=== PATIENT | female | born 1965 | race Caucasian/White ===

== ENCOUNTER → 2016-06-28 12:27 | Outpatient (CLI) | payer OTHER ==
[2016-01-07 12:00] VITALS: BMI 17.4
[~2016-06-28 12:27] MED LIST: ACETAMINOPHEN325 MG PO; AMITRIPTYLINE H50 MG PO; ANUSOL-HC25 MG RC; BAYER CHEWABLE81 MG PO; BUTALB-APAP-CA1 EACH PO; CARAFATE1 G PO; CORDARONE200 MG PO; HYDROCODONE-APA1 TAB PO; K-DUR20 MEQ PO; LANOXIN250 MCG PO; MIRALAX17 GM PO; NORCO 7.5/325 T1 TA1 PO; NYSTATIN15 GM TP; OMEPRAZOLE40 MG PO; PERCOCET 2.5/321 TAB; PHENERGAN25 M1 PO; ROBAXIN500 MG PO; ZANTAC150 MG PO
--- NOTE | 2016-06-29 13:59 | EC ---
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 Ao 141 RVOT 70.0 RA PA 89.0 AV Gradient Peak 8.0 AV Mean 4.3 AV Area 2.8 MV Gradient Peak 3.7 MV Mean 1.1 MV Area COMMENTS: Agent Based Modeler: Kingsley LINDA Account Support Rep:1 Dr. Weeks TAPE# PACS DATE OF SERVICE: 06/28/2016 Echocardiogram FINDINGS: 1. Left ventricular chamber size is within normal limits. Left ventricular systolic function is normal. Overall ejection fraction estimated at 60%. 2. Left atrium, right atrium, and right ventricular chamber sizes are within normal limits. ECHOCARDIOGRAM REPORT [id number] HEBERT GUAMAN 3. Valvular structures: The mitral valve demonstrates leaflet calcification, but no significant mitral stenosis is present, only mild mitral regurgitation is present. Mild tricuspid regurgitation is present. No other valvular insufficiency or stenosis. Pulmonary systolic pressure is normal estimated 30 mmHg. 4. No evidence of pericardial effusion or left ventricular thrombus. TRANSINT:[id number] Voice Confirmation ID: [id number] DOCUMENT ID: [id number] BRAD WEEKS MD at 1359 CC: [id number] DICTATION DATE: 06/28/16 1602 CONCIERGE: 06/29/16 0036 DEP CLI 06/28/16 [place] [id number] [place] [address]
== END | disposition home or self-care (01) ==
LOC: D.ECHO 09:00
DX: G43.009 Migraine without aura, not intractable, without status migrainosus (principal); I63.139 Cerebral infarction due to embolism of unspecified carotid artery

== ENCOUNTER → 2016-06-30 09:16 | Outpatient (CLI) | payer OTHER ==
[2016-01-07 12:00] VITALS: BMI 17.4
[2016-07-01 11:11] LABS: IMMUNOGLOBULIN E 6 IU/mL (0-100)
== END | disposition home or self-care (01) ==
LOC: D.RT 09:16
PROVIDERS: Internal Medicine Pulmonary Disease
DX: J45.909 Unspecified asthma, uncomplicated (principal)

== ENCOUNTER → 2016-07-12 09:53 | Outpatient (CLI) | payer OTHER ==
[2016-01-07 12:00] VITALS: BMI 17.4
== END | disposition home or self-care (01) ==
LOC: D.CT 09:53
DX: I63.139 Cerebral infarction due to embolism of unspecified carotid artery (principal); G43.009 Migraine without aura, not intractable, without status migrainosus

== ENCOUNTER 2016-08-05 16:24 | Emergency (ER) | payer OTHER ==
[2016-01-07 12:00] VITALS: BMI 17.4
[2016-08-05 17:28] LABS: BASOPHILS 0.2 % (0.0-2.0); EOSINOPHILS 0.7 % (0-7); HEMATOCRIT 46.8 % (36.0-48.0); HEMOGLOBIN 15.7 g/dL (12-16); IMMATURE GRANULOCYTES 0.1 % (0-5); LYMPHOCYTES 19.2 % (15-50); MCH 29.3 pg (26.0-34.0); MCHC 33.5 g/dL (31.0-37.0); MCV 87.5 fL (80.0-100.0); MONOCYTES 8.7 % (2-11); NEUTROPHILS 71.1 % (40-80); PLATELET COUNT 216 10x3/uL (130-400); RBC 5.35 10x6/uL (4.00-5.40); RDW 12.7 % (11.5-14.5)
[2016-08-05 19:55] LABS: ALBUMIN 4.3 g/dL (3.4-5.0); ALKALINE PHOSPHATASE 123 U/L (46-116); ALT (SGPT) 26 U/L (10-68); BILIRUBIN - TOTAL 0.62 mg/dL (0.2-1.3); CALC OSMOLALITY 280 mosm/kg (275-300); CALCIUM 9.5 mg/dL (8.5-10.1); CARBON DIOXIDE 26.4 mmol/L (21.0-32.0); CHLORIDE - SERUM 106 mmol/L (98-107); CREATININE - SERUM 0.7 mg/dL (0.6-1.3); GLUCOSE 112 mg/dL (74-106); POTASSIUM - SERUM 4.2 mmol/L (3.5-5.1); PROTEIN - SERUM 8.2 g/dL (6.4-8.2); SODIUM 141 mmol/L (136-145); UREA NITROGEN 9 mg/dL (7-18); eGFR NON AFRICAN AMERICAN > 90 mL/min (90-120)
[2016-08-05 19:58] LABS: AMYLASE - SERUM 37 U/L (25-115); DIGOXIN 1.34 ng/mL (0.90-2.00); LIPASE 118 U/L (73-393); PHOSPHOROUS 3.6 mg/dL (2.5-4.9); TROPONIN-I < 0.017 ng/mL (0.000-0.060)
== END 2016-08-06 00:15 | disposition home or self-care (01) ==
LOC: D.ER 16:24
PROVIDERS: Emergency Medicine; Surgery
DX: R10.9 Unspecified abdominal pain (principal); K59.00 Constipation, unspecified; Z95.1 Presence of aortocoronary bypass graft

== ENCOUNTER 2016-08-17 21:04 | Emergency (ER) | payer OTHER ==
[2016-01-07 12:00] VITALS: BMI 17.4
[2016-08-17 22:14] LABS: BASOPHILS 0.2 % (0.0-2.0); EOSINOPHILS 0.8 % (0-7); HEMATOCRIT 43.2 % (36.0-48.0); IMMATURE GRANULOCYTES 0.7 % (0-5); LYMPHOCYTES 18.5 % (15-50); MCH 29.2 pg (26.0-34.0); MCHC 34.7 g/dL (31.0-37.0); MEAN PLATELET VOLUME 10.1 fL (7.4-10.4); MONOCYTES 9.3 % (2-11); NEUTROPHILS 70.5 % (40-80); RBC 5.14 10x6/uL (4.00-5.40); RDW 12.3 % (11.5-14.5); WBC 10.5 10x3/uL (4.8-10.8)
[2016-08-17 22:19] LABS: PLATELET COUNT 279 10x3/uL (130-400)
[2016-08-17 22:30] LABS: ALBUMIN 3.6 g/dL (3.4-5.0); ALKALINE PHOSPHATASE 116 U/L (46-116); ALT (SGPT) 14 U/L (10-68); BILIRUBIN - TOTAL 0.56 mg/dL (0.2-1.3); CALC OSMOLALITY 266 mosm/kg (275-300); CALCIUM 9.7 mg/dL (8.5-10.1); CARBON DIOXIDE 22.7 mmol/L (21.0-32.0); CHLORIDE - SERUM 101 mmol/L (98-107); CREATININE - SERUM 0.7 mg/dL (0.6-1.3); GLUCOSE 117 mg/dL (74-106); POTASSIUM - SERUM 3.3 mmol/L (3.5-5.1); PROTEIN - SERUM 8.6 g/dL (6.4-8.2); SODIUM 134 mmol/L (136-145); UREA NITROGEN 6 mg/dL (7-18); eGFR NON AFRICAN AMERICAN > 90 mL/min (90-120)
[2016-08-17 22:35] LABS: DIGOXIN 1.95 ng/mL (0.90-2.00)
== END 2016-08-18 02:12 | disposition home or self-care (01) ==
LOC: D.ER 21:04
PROVIDERS: Emergency Medicine
DX: J20.9 Acute bronchitis, unspecified (principal); Z95.1 Presence of aortocoronary bypass graft; G51.0 Bell's palsy

== ENCOUNTER 2016-09-08 15:04 | Emergency (ER) | payer MEDICAID ==
[2016-01-07 12:00] VITALS: BMI 17.4
[2016-09-08 16:14] LABS: BASOPHILS 0.1 % (0-2); EOSINOPHILS 1.3 % (0-7); HEMATOCRIT 46.3 % (36.0-48.0); HEMOGLOBIN 15.3 g/dL (12-16); IMMATURE GRANULOCYTES 0.2 % (0-5); MCH 28.7 pg (26.0-34.0); MCV 86.9 fL (80.0-100.0); MONOCYTES 7.5 % (2-11); NEUTROPHILS 68.9 % (40-80); PLATELET COUNT 254 10x3/uL (130-400); RBC 5.33 10x6/uL (4.00-5.40); RDW 13.6 % (11.5-14.5); WBC 8.7 10x3/uL (4.8-10.8)
[2016-09-08 16:49] LABS: ALBUMIN 3.9 g/dL (3.4-5.0); ALKALINE PHOSPHATASE 105 U/L (46-116); ALT (SGPT) 22 U/L (10-68); BILIRUBIN - TOTAL 0.53 mg/dL (0.2-1.3); CALC OSMOLALITY 278 mosm/kg (275-300); CALCIUM 9.4 mg/dL (8.5-10.1); CARBON DIOXIDE 22.5 mmol/L (21.0-32.0); CHLORIDE - SERUM 105 mmol/L (98-107); CREATININE - SERUM 0.6 mg/dL (0.6-1.3); GLUCOSE 95 mg/dL (74-106); POTASSIUM - SERUM 3.3 mmol/L (3.5-5.1); PROTEIN - SERUM 7.7 g/dL (6.4-8.2); SODIUM 140 mmol/L (136-145); UREA NITROGEN 12 mg/dL (7-18); eGFR NON AFRICAN AMERICAN > 90 mL/min (90-120)
[2016-09-08 17:03] LABS: CHOL - HDL RATIO 3.3 ratio (2.3-4.1); CHOLESTEROL, TOTAL 194 mg/dL (0-200); CKMB 0.5 U/L (0.0-3.6); CREATINE KINASE 18 UL (21-215); HDL CHOLESTEROL 58 mg/dL (32-96); LDL CHOLESTEROL 109 mg/dL (0-100); LDL-HDL RATIO 1.9 ratio (1.5-3.5); PRO BNP 127 pg/mL (0-125); TRIGLYCERIDE 135 mg/dL (30-200)
[2016-09-08 17:04] LABS: TROPONIN-I < 0.017 ng/mL (0.000-0.060)
== END 2016-09-08 19:45 | disposition home or self-care (01) ==
LOC: D.ER 15:04
PROVIDERS: Family Medicine
DX: R07.9 Chest pain, unspecified (principal); F41.9 Anxiety disorder, unspecified; Z95.1 Presence of aortocoronary bypass graft; G51.0 Bell's palsy; I25.810 Atherosclerosis of coronary artery bypass graft(s) without angina pectoris; Z95.0 Presence of cardiac pacemaker

== ENCOUNTER → 2016-11-10 07:08 | Outpatient (CLI) | payer MEDICAID ==
[2016-01-07 12:00] VITALS: BMI 17.4
--- NOTE | 2016-11-13 15:02 | ST ---
PATIENT:HEBERT GUAMAN MEDICAL RECORD: [id number] SEX: F LOCATION:[facility] ORDER #: ADMISSION DATE: 11/10/16 AGE OF PATIENT: 51 REFERRING PHYSICIAN: INTERPRETING PHYSICIAN: BRAD GOODWIN MD DATE OF SERVICE: 11/10/2016 Nuclear Stress Test INDICATION: Chest pain of unknown etiology. The patient was exercised standard Lexiscan protocol with 32.7 mCi injected at peak stress. Rest images were done previously with 12.2 mCi. FINDINGS: Gated SPECT reveals preserved ejection fraction greater than 60% with good wall motion and thickening and brightening throughout all segments. SPECT imaging sestamibi was used as myocardial perfusion agent. There is homogeneous uptake throughout all segments at rest and stress with no evidence of inducible ischemia or previous infarction. OVERALL IMPRESSION: 1. This is a normal nuclear stress test with no evidence of inducible ischemia or previous infarction. 2. Gated SPECT reveals preserved ejection fraction greater than 60%. In this patient with ongoing symptomatology, the current scan does not suggest the presence of hemodynamically significant coronary artery disease. We will proceed with noncardiac etiology chest pain workup. TRANSINT:[id number] Voice Confirmation ID: [id number] DOCUMENT ID: [id number] BRAD GOODWIN MD at 1502 CC: [id number] DICTATION DATE: 11/10/16 1504 COMPOUND COATING MACHINE OFFBEARER: 11/11/16 0302 DEP CLI 11/10/16 [place] [address] [place] [address]
== END | disposition home or self-care (01) ==
LOC: D.NM 07:08
DX: I20.9 Angina pectoris, unspecified (principal); R06.02 Shortness of breath

== ENCOUNTER → 2016-12-11 15:00 | Outpatient (CLI) | payer MEDICAID ==
[2016-01-07 12:00] VITALS: BMI 17.4
== END | disposition home or self-care (01) ==
LOC: D.CT 15:00
DX: M47.893 Other spondylosis, cervicothoracic region (principal)

== ENCOUNTER 2017-02-20 09:24 | Emergency (ER) | payer MEDICAID ==
[2016-01-07 12:00] VITALS: BMI 17.4
[2017-02-20 10:21] LABS: ALBUMIN 3.5 g/dL (3.4-5.0); ALKALINE PHOSPHATASE 99 U/L (46-116); ALT (SGPT) 18 U/L (10-68); BILIRUBIN - TOTAL 0.33 mg/dL (0.2-1.3); CALC OSMOLALITY 272 mosm/kg (275-300); CALCIUM 8.9 mg/dL (8.5-10.1); CARBON DIOXIDE 21.1 mmol/L (21.0-32.0); CREATININE - SERUM 0.7 mg/dL (0.6-1.3); GLUCOSE 93 mg/dL (74-106); POTASSIUM - SERUM 3.6 mmol/L (3.5-5.1); PROTEIN - SERUM 7.2 g/dL (6.4-8.2); SODIUM 137 mmol/L (136-145); UREA NITROGEN 10 mg/dL (7-18); eGFR NON AFRICAN AMERICAN > 90 mL/min (90-120)
[2017-02-20 10:23] LABS: BASOPHILS 0.3 % (0-2); EOSINOPHILS 2.2 % (0-7); HEMATOCRIT 42.6 % (36.0-48.0); HEMOGLOBIN 14.5 g/dL (12-16); IMMATURE GRANULOCYTES 0.2 % (0-5); LYMPHOCYTES 39.2 % (15-50); MCH 29.3 pg (26.0-34.0); MCV 86.1 fL (80.0-100.0); MEAN PLATELET VOLUME 9.5 fL (7.4-10.4); MONOCYTES 6.2 % (2-11); NEUTROPHILS 51.9 % (40-80); PLATELET COUNT 232 10x3/uL (130-400); RBC 4.95 10x6/uL (4.00-5.40); RDW 13.5 % (11.5-14.5); WBC 6.3 10x3/uL (4.8-10.8)
[2017-02-20 10:31] LABS: CKMB 0.2 U/L (0.0-3.6); CREATINE KINASE 42 UL (21-215)
[2017-02-20 10:32] LABS: CHLORIDE - SERUM 106 mmol/L (98-107); TROPONIN-I < 0.017 ng/mL (0.000-0.060)
[2017-02-20 11:14] LABS: APPEARANCE HAZY (CLEAR); BILIRUBIN NEGATIVE (NEGATIVE); COLOR YELLOW (YELLOW); GLUCOSE NEGATIVE (NEGATIVE); KETONE NEGATIVE (NEGATIVE); NITRITE NEGATIVE (NEGATIVE); PROTEIN NEGATIVE (NEGATIVE); UROBILINOGEN NORMAL (NORMAL)
[2017-02-20 11:15] LABS: BACTERIA FEW /hpf (NONE SEEN); EPITHELIAL CELLS 0-5 /hpf (0-5); MUCUS <1+ /lpf (NONE SEEN); RED CELLS - URINE RARE /hpf (0-5)
== END 2017-02-20 12:59 | disposition home or self-care (01) ==
LOC: D.ER 09:24
PROVIDERS: Family Medicine
DX: R56.9 Unspecified convulsions (principal); G43.909 Migraine, unspecified, not intractable, without status migrainosus; N39.0 Urinary tract infection, site not specified; F17.200 Nicotine dependence, unspecified, uncomplicated

== ENCOUNTER 2017-03-28 11:29 | Emergency (ER) | payer MEDICAID ==
[2016-01-07 12:00] VITALS: BMI 17.4
== END 2017-03-28 14:08 | disposition home or self-care (01) ==
LOC: D.ER 11:29
DX: R51 Headache (principal); W01.0XXA Fall on same level from slipping, tripping and stumbling without subsequent striking against object, initial encounter; Y93.89 Activity, other specified; Y92.89 Other specified places as the place of occurrence of the external cause

== ENCOUNTER 2017-05-18 08:10 | Day surgery (SDC) | payer MEDICAID ==
[~2017-05-18] VITALS: Ht 167.6 cm; Wt 47.3 kg
--- NOTE | ~2017-05-18 | PRO ---
PATIENT:HEBERT GUAMAN MEDICAL RECORD: [id number] : 61 LOCATION:D.OPS ADMISSION DATE: 05/18/17 PROCEDURE PERFORMED BY: YANICK CAMACHO MD DATE OF PROCEDURE: 05/18/2017 ADOLESCENT SPECIALIST: Yanick Camacho MD PROCEDURE: Flexible sigmoidoscopy with hemorrhoidal banding times 6. INDICATION: The patient is a 52-year-old white female with symptomatic hemorrhoids, both internal and external. She had a complete colonoscopy just a month ago that revealed external hemorrhoids as well as grade II internal hemorrhoids. She is having some bleeding and occasional prolapse and presents for possible banding. PREMEDICATION: Taper anesthesia. INSTRUMENT: Olympus video gastroscope. FINDINGS: Rectal exam reveals grade II external hemorrhoids. The scope was then inserted with the patient with a die caster already on the tip of the scope. I performed a limited flex sig, which was normal other than grade II internal hemorrhoids. Using the Superview die caster, both on retroflexed and 4 view, placed 6 bands in a circumferential manner just proximal to the dentate line without difficulty. The patient tolerated the procedure well without any complication. IMPRESSION: 1. Grade II internal and external hemorrhoids, now status post hemorrhoidal banding times 6 as noted above. 2. Otherwise, normal sigmoidoscopy. PLAN: 1. Avoid constipation and straining with bowel movement. 2. Return to clinic in about 3 weeks. 3. Tramadol p.r.n. pain. 4. If she is not getting definite improvement with her symptoms with this banding, and I suspect she will need to be referred to surgery for possible hemorrhoidal stapling and removal of external hemorrhoids as well. TRANSINT:[id number] Voice Confirmation ID: [id number] DOCUMENT ID: [id number] YANICK CAMACHO MD CC: DULCE COBIAN MD [id number] DICTATION DATE: 05/18/17 1132 SALES FORCE DEVELOPER: 05/18/17 1421 [facility] 05/18/17 [place] [id number] [place] [id number]
[2017-05-18] MEDS ORDERED: TOPAMAX100 MG PO (08:12)
[2017-05-18] MEDS ORDERED: PROPAFENONE HC150 MG PO (08:12)
[2017-05-18] MEDS ORDERED: PROAIR HFA8.5 GM INH (08:13)
[2017-05-18] MEDS ORDERED: ATIVAN0.5 MG PO (08:13)
[2017-05-18 08:15] LABS: HEMATOCRIT 46.9 % (36.0-48.0); HEMOGLOBIN 15.9 g/dL (12-16); MCH 29.3 pg (26.0-34.0); MCHC 33.9 g/dL (31.0-37.0); MCV 86.5 fL (80.0-100.0); MEAN PLATELET VOLUME 9.4 fL (7.4-10.4); RBC 5.42 10x6/uL (4.00-5.40); RDW 12.9 % (11.5-14.5); WBC 5.9 10x3/uL (4.8-10.8)
[2017-05-18] MEDS ORDERED: AMITIZA24 MCG PO (08:16)
[2017-05-18 08:21] LABS: ANION GAP 12.4 mmol/L (8-16); CALCIUM 9.9 mg/dL (8.5-10.1); CARBON DIOXIDE 26.1 mmol/L (21.0-32.0); CREATININE - SERUM 0.9 mg/dL (0.6-1.3); POTASSIUM - SERUM 3.5 mmol/L (3.5-5.1)
[2017-05-18 08:26] VITALS: Ht 167.6 cm; Wt 47.3 kg
[2017-05-19 21:06] LABS: CHLAMYDIA TRACHOMATIS, NAA Negative (Negative)
== END 2017-05-18 12:35 | disposition home or self-care (01) ==
LOC: D.OPS 08:10
PROVIDERS: Anesthesiology; Internal Medicine Gastroenterology
DX: K64.1 Second degree hemorrhoids (principal); K64.4 Residual hemorrhoidal skin tags; Z01.812 Encounter for preprocedural laboratory examination

== ENCOUNTER 2017-06-03 12:46 | Emergency (ER) | payer MEDICAID ==
[2017-05-18 08:26] VITALS: BMI 16.8
[~2017-06-03 12:46] MED LIST changes: +AMITIZA24 MCG PO; +ATIVAN0.5 MG PO; +PROAIR HFA8.5 GM INH; +PROPAFENONE HC150 MG PO; +TOPAMAX100 MG PO
[2017-06-03 16:01] LABS: BASOPHILS 0.3 % (0-2); EOSINOPHILS 2.7 % (0-7); HEMATOCRIT 43.3 % (36.0-48.0); HEMOGLOBIN 14.3 g/dL (12-16); LYMPHOCYTES 37.6 % (15-50); MCH 28.8 pg (26.0-34.0); MCV 87.1 fL (80.0-100.0); MEAN PLATELET VOLUME 9.5 fL (7.4-10.4); MONOCYTES 6.6 % (2-11); NEUTROPHILS 52.8 % (40-80); PLATELET COUNT 238 10x3/uL (130-400); RBC 4.97 10x6/uL (4.00-5.40); RDW 12.8 % (11.5-14.5); WBC 5.9 10x3/uL (4.8-10.8)
[2017-06-03 16:27] LABS: INR 1.14 (0.85-1.17); PROTIME 14.2 SECONDS (11.6-15.0)
[2017-06-03 17:07] LABS: ALBUMIN 3.7 g/dL (3.4-5.0); ALKALINE PHOSPHATASE 117 U/L (46-116); ALT (SGPT) 17 U/L (10-68); CALC OSMOLALITY 280 mosm/kg (275-300); CALCIUM 8.8 mg/dL (8.5-10.1); CARBON DIOXIDE 22.9 mmol/L (21.0-32.0); CHLORIDE - SERUM 107 mmol/L (98-107); CREATININE - SERUM 0.8 mg/dL (0.6-1.3); GLUCOSE 98 mg/dL (74-106); POTASSIUM - SERUM 3.9 mmol/L (3.5-5.1); PROTEIN - SERUM 7.1 g/dL (6.4-8.2); SODIUM 141 mmol/L (136-145); UREA NITROGEN 13 mg/dL (7-18); eGFR NON AFRICAN AMERICAN 79 mL/min (90-120)
[2017-06-03 17:15] LABS: CREATINE KINASE 37 UL (21-215); PRO BNP 116 pg/mL (0-125); TROPONIN-I < 0.017 ng/mL (0.000-0.060)
[2017-06-03 18:42] LABS: APPEARANCE CLEAR (CLEAR); BILIRUBIN NEGATIVE (NEGATIVE); COLOR YELLOW (YELLOW); GLUCOSE NEGATIVE (NEGATIVE); KETONE NEGATIVE (NEGATIVE); NITRITE NEGATIVE (NEGATIVE); PROTEIN NEGATIVE (NEGATIVE); UROBILINOGEN NORMAL (NORMAL)
[2017-06-03 18:43] LABS: WHITE CELLS - URINE 0-5 /hpf (0-5)
[2017-06-03 18:44] LABS: BACTERIA MODERATE /hpf (NONE SEEN)
== END 2017-06-03 19:27 | disposition home or self-care (01) ==
LOC: D.ER 12:46
PROVIDERS: Nurse Practitioner Family
DX: N39.0 Urinary tract infection, site not specified (principal); R11.2 Nausea with vomiting, unspecified

== ENCOUNTER → 2017-09-13 12:26 | Outpatient (CLI) | payer MEDICAID ==
[2017-05-18 08:26] VITALS: BMI 16.8
== END | disposition home or self-care (01) ==
LOC: D.MRI 12:26
DX: M25.562 Pain in left knee (principal); M25.561 Pain in right knee

== ENCOUNTER → 2017-10-03 07:03 | Outpatient (CLI) | payer MEDICAID ==
[2017-05-18 08:26] VITALS: BMI 16.8
== END | disposition home or self-care (01) ==
LOC: D.RAD 07:03
DX: M17.10 Unilateral primary osteoarthritis, unspecified knee (principal)

== ENCOUNTER 2017-11-01 08:50 | Day surgery (SDC) | payer MEDICAID ==
[2017-10-31 08:49] LABS: APTT 32.9 SECONDS (22.8-39.4); INR 1.18 (0.85-1.17); PROTIME 14.6 SECONDS (11.6-15.0)
[2017-10-31 08:57] LABS: BASOPHILS 0.4 % (0-2); EOSINOPHILS 3.1 % (0-7); HEMOGLOBIN 14.8 g/dL (12-16); IMMATURE GRANULOCYTES 0.2 % (0-5); LYMPHOCYTES 38.6 % (15-50); MCH 28.4 pg (26.0-34.0); MCHC 33.6 g/dL (31.0-37.0); MCV 84.3 fL (80.0-100.0); MEAN PLATELET VOLUME 10.4 fL (7.4-10.4); MONOCYTES 6.2 % (2-11); NEUTROPHILS 51.5 % (40-80); PLATELET COUNT 199 10x3/uL (130-400); RBC 5.22 10x6/uL (4.00-5.40); WBC 5.5 10x3/uL (4.8-10.8)
[2017-10-31 09:08] LABS: ALKALINE PHOSPHATASE 123 U/L (46-116); ALT (SGPT) 20 U/L (10-68); BILIRUBIN - TOTAL 0.37 mg/dL (0.2-1.3); CALC OSMOLALITY 281 mosm/kg (275-300); CARBON DIOXIDE 23.6 mmol/L (21.0-32.0); CHLORIDE - SERUM 108 mmol/L (98-107); CREATININE - SERUM 0.7 mg/dL (0.6-1.3); GLUCOSE 86 mg/dL (74-106); POTASSIUM - SERUM 3.2 mmol/L (3.5-5.1); PROTEIN - SERUM 7.4 g/dL (6.4-8.2); SODIUM 143 mmol/L (136-145); UREA NITROGEN 8 mg/dL (7-18); eGFR NON AFRICAN AMERICAN > 90 mL/min (90-120)
[~2017-11-01] VITALS: Ht 167.6 cm; Wt 45.8 kg
--- NOTE | ~2017-11-01 | OP ---
PATIENT NAME: HEBERT GUAMAN MEDICAL RECORD: [id number] :61 LOCATION:D.OPS ADMISSION DATE: SURGEON: TALITA KINNEY MD DATE OF OPERATION: 11/01/2017 PREOPERATIVE DIAGNOSIS: Patellofemoral syndrome of the left knee. POSTOPERATIVE DIAGNOSIS: Patellofemoral syndrome of the left knee. PROCEDURE: Left knee arthroscopy with arthroscopic lateral release. SURGEON: Talita Kinney MD ANESTHESIA: General. INTRAOPERATIVE COMPLICATIONS: None. 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 Minimal amount of chondromalacia was seen in the lateral trochlear wall, some apex erosion was seen of the patella. OPERATIVE SUMMARY IN DETAIL: After obtaining the appropriate preoperative orthopedic surgery consent as well as anesthetic consultation, evaluation and clearance, the patient was taken to the operating room and placed on operating table in supine position. After general laryngeal mask airway was administered, tourniquet was placed on the proximal aspect of the left lower extremity. Left lower extremity was then prepped and draped in routine sterile fashion. Leg was elevated and exsanguinated, tourniquet was inflated to 350 mmHg. Routine inferolateral portal was created followed by superomedial and inferomedial portal. Diagnostic arthroscopy showed no evidence of meniscal tearing. No evidence of substantial chondromalacia; however, she did have some wear on the lateral facet consistent on the preoperative radiographs, MRI and diagnosis. At this point, the camera was switched to view the lateral aspect of the knee from the medial portal. [place] hook tip tissue ablation system was utilized to release the lateral retinaculum just below the vastus lateralis to the inferolateral portal. Having completed this, the knee was insufflated with 30 mL of 0.25% Marcaine with epinephrine, 80 mg of Depo-Medrol. Arthroscopy portals were closed in routine interrupted fashion using 4-0 Prolene. Sterile dressings were applied. The patient was awakened and taken to the recovery room in stable condition. All final needle and sponge counts were correct. TRANSINT:[id number] Voice Confirmation ID: [id number] DOCUMENT ID: [id number] TALITA KINNEY MD at 0930 CC: [id number] DICTATION DATE: 11/01/17 1231 FRAME ALIGNER: 11/01/17 1349 DEP SD 11/01/17 [place] [id number] [facility]901
[~2017-11-01 08:50] MED LIST changes: +AMITRIPTYLINE150 MG PO; +FLORINEF 0.1 M0.1 MG PO; -TOPAMAX100 MG PO; +TOPAMAX200 MG PO
[2017-11-01 10:18] VITALS: BP 124/70; Ht 167.6 cm; Wt 45.8 kg
[2017-11-01] MEDS ORDERED: HYDROCODONE-APA1 TAB PO (12:32)
== END 2017-11-01 14:40 | disposition home or self-care (01) ==
LOC: D.OPS 08:50 → D.PAN 20:30
PROVIDERS: Anesthesiology
DX: M17.0 Bilateral primary osteoarthritis of knee (principal); S83.232A Complex tear of medial meniscus, current injury, left knee, initial encounter; S83.261A Peripheral tear of lateral meniscus, current injury, right knee, initial encounter; M25.561 Pain in right knee; M25.562 Pain in left knee; J45.909 Unspecified asthma, uncomplicated; I10 Essential (primary) hypertension; I25.10 Atherosclerotic heart disease of native coronary artery without angina pectoris; Z01.812 Encounter for preprocedural laboratory examination

== ENCOUNTER → 2018-01-11 12:26 | Outpatient (CLI) | payer MEDICAID ==
[2017-11-01 10:18] VITALS: BMI 16.3
[~2018-01-11 12:26] MED LIST changes: +COMPAZINE10 MG PO; +OMNICEF300 MG PO
== END | disposition home or self-care (01) ==
LOC: D.CT 12:26
DX: R04.2 Hemoptysis (principal)

== ENCOUNTER → 2018-01-25 12:16 | Outpatient (CLI) | payer MEDICAID ==
[2017-11-01 10:18] VITALS: BMI 16.3
== END | disposition home or self-care (01) ==
LOC: D.RAD 12:16
DX: M25.562 Pain in left knee (principal)

== ENCOUNTER 2018-01-28 19:07 | Emergency (ER) | payer MEDICAID ==
[~2018-01-28] VITALS: Ht 167.6 cm; Wt 45.5 kg
[~2018-01-28 19:07] MED LIST changes: -COMPAZINE10 MG PO; -OMNICEF300 MG PO
[2018-01-28 19:12] VITALS: Ht 167.6 cm; Wt 45.5 kg
[2018-01-28 19:44] LABS: BASOPHILS 0.4 % (0-2); HEMATOCRIT 39.6 % (36.0-48.0); HEMOGLOBIN 13.2 g/dL (12-16); IMMATURE GRANULOCYTES 0.2 % (0-5); LYMPHOCYTES 42.5 % (15-50); MCH 28.6 pg (26.0-34.0); MCHC 33.3 g/dL (31.0-37.0); MCV 85.7 fL (80.0-100.0); MEAN PLATELET VOLUME 9.7 fL (7.4-10.4); MONOCYTES 6.9 % (2-11); PLATELET COUNT 164 10x3/uL (130-400); RBC 4.62 10x6/uL (4.00-5.40); RDW 12.8 % (11.5-14.5); WBC 4.8 10x3/uL (4.8-10.8)
[2018-01-28 20:09] LABS: ALBUMIN 3.4 g/dL (3.4-5.0); ALKALINE PHOSPHATASE 106 U/L (46-116); ALT (SGPT) 19 U/L (10-68); BILIRUBIN - TOTAL 0.27 mg/dL (0.2-1.3); CALC OSMOLALITY 282 mosm/kg (275-300); CALCIUM 8.6 mg/dL (8.5-10.1); CARBON DIOXIDE 30.4 mmol/L (21.0-32.0); CHLORIDE - SERUM 104 mmol/L (98-107); CREATININE - SERUM 0.6 mg/dL (0.6-1.3); GLUCOSE 113 mg/dL (74-106); PROTEIN - SERUM 6.8 g/dL (6.4-8.2); SODIUM 142 mmol/L (136-145); UREA NITROGEN 9 mg/dL (7-18); eGFR NON AFRICAN AMERICAN > 90 mL/min (90-120)
[2018-01-28 20:19] LABS: AMYLASE - SERUM 47 U/L (25-115); CKMB 0.7 U/L (0.0-3.6); CREATINE KINASE 49 UL (21-215); LIPASE 129 U/L (73-393); PRO BNP 455 pg/mL (0-125)
[2018-01-28 20:22] LABS: APPEARANCE HAZY (CLEAR); BILIRUBIN NEGATIVE (NEGATIVE); COLOR YELLOW (YELLOW); EPITHELIAL CELLS 0-5 /hpf (0-5); GLUCOSE NEGATIVE (NEGATIVE); KETONE NEGATIVE (NEGATIVE); NITRITE NEGATIVE (NEGATIVE); PROTEIN NEGATIVE (NEGATIVE); RED CELLS - URINE 0-5 /hpf (0-5); UROBILINOGEN NORMAL (NORMAL); WHITE CELLS - URINE 25-50 /hpf (0-5)
[2018-01-28 20:23] LABS: BACTERIA FEW /hpf (NONE SEEN)
[2018-01-28 20:27] LABS: TROPONIN-I < 0.017 ng/mL (0.000-0.060)
[2018-01-28] MEDS ORDERED: OMNICEF300 MG PO (21:17)
[2018-01-28] MEDS ORDERED: COMPAZINE10 MG PO (21:17)
[2018-01-28 21:36] VITALS: BP 131/80
== END 2018-01-28 21:34 | disposition home or self-care (01) ==
LOC: D.ER 19:07
PROVIDERS: Family Medicine
DX: N39.0 Urinary tract infection, site not specified (principal); E87.6 Hypokalemia; R07.9 Chest pain, unspecified; Z86.73 Personal history of transient ischemic attack (TIA), and cerebral infarction without residual deficits; Z95.0 Presence of cardiac pacemaker; Z86.79 Personal history of other diseases of the circulatory system; J44.9 Chronic obstructive pulmonary disease, unspecified

== ENCOUNTER 2018-02-15 07:03 | Outpatient (CLI) | payer MEDICAID ==
[~2018-02-15] VITALS: Ht 167.6 cm; Wt 45.9 kg
--- NOTE | ~2018-02-15 | HEMODYNAMI ---
PATIENT:HEBERT GUAMAN MEDICAL RECORD: [id number] : 61 LOCATION:D.CAT ADMISSION DATE: 02/15/18 Generatedon:02/15/20189:56 Patient name: HEBERT GUAMAN Patient #: [id number] SSN: : 1965 Date of study: 02/15/2018 Page: Of Hemodynamic Procedure Report Patient Data Patient Demographics Procedure consent was obtained First Name: HEBERT Gender: Female Last Name: ROWENA : 1965 [facility] Initial: CHAKA Age: 52 year(s) Patient #: [id number] Race: Unknown Additional ID: [id number] Contact details Address: [address] [place] [address] [address]REET State: [place]: [facility] [place] Zip code: [address] Past Medical History Allergies Allergen Reaction Date Comments Reported Other allergy 02/15/2018 BENADRYL, ZOFRAN Admission Admission Data Admission Date: 02/15/2018 Admission Time: 7:03 Procedure Procedure Types Cath Procedure Diagnostic Procedure LHC LHC w/Coronaries w/Grafts Procedure Description Procedure Date Procedure Date: 02/15/2018 Procedure Start Time: 9:46 Procedure End Time: 9:54 Procedure Staff Name Function Marvin Weeks MD Performing Physician Alix Hector RT Monitor Norberto Wiggins RN Nurse Ariane Adams RN Nurse Karl Hernandez RT Teacher Visually Impaired Milady Driscoll RT Scrub Procedure Data Cath Procedure Fluoroscopy Diagnostic fluoroscopy Total fluoroscopy Time: 1 time: 1 min min Diagnostic fluoroscopy Total fluoroscopy dose: 127 dose: 127 mGy mGy Contrast Material Contrast Material Type Amount (ml) Isovue 300 41 Entry Location Entry Primary Successful Side Size Upsize Upsize Entry Closure Succes sful Closure Location (Fr) 1 (Fr) 2 (Fr) Remarks Device Remarks Femoral Right 5 Fr Exoseal artery Estimated blood loss: 5 ml Diagnostic catheters Device Type Used For End Catheter Placement MULTIPACK Pigtail 5 Fr LV Angiography catheter MULTIPACK 3DRC 5Fr Internal mammary catheter arteriography MULTIPACK 3DRC 5Fr Right Coronary catheter Angiography MULTIPACK JL 4.0 5Fr Left Coronary catheter Angiography Procedure Complications No complications Procedure Medications Medication Administration Route Dosage Oxygen etCO2 Nasal cannula 2 l/min Lidocaine 2% added to field 20 Heparin Flush Bag added to field 2 bags (1000units/500ml NS) 0.9% NaCl I.V. 100 ml/hr Versed I.V. 2 mg Fentanyl I.V. 100 mcg Versed I.V. 1 mg Fentanyl I.V. 75 mcg Hemodynamics Rest Heart Rate: 64 (bpm) Snapshots Pre Cath Intra NCS Post Cath Vital Signs Time Heart Resp SPO2 etCO2 NIBP (mmHg) Rhythm Pain Sedation Rate (ipm) (%) (mmHg) Status Level (bpm) 9:31:43 72 15 98 28 128/75(103) NSR 0 (11) 10(A) , No pain 9:36:17 67 18 100 27.9 129/78(105) NSR 0 (11) 10(A) , No pain 9:40:50 65 13 100 25.6 125/80(96) NSR 0 (11) 10(A) , No pain 9:45:24 63 16 98 26.3 112/73(94) NSR 0 (11) 10(A) , No pain 9:49:55 63 14 96 38.4 108/71(91) NSR 0 (11) 9(A) , No pain 9:54:25 73 15 97 3.7 116/75(97) NSR 0 (11) 9(A) , No pain Medications Time Medication Route Dose Verified Delivered Reason Notes Effe ctiveness by by 9:29:55 Oxygen etCO2 2 Marvin Ariane used for Nasal l/min Desi Adams procedure cannula RN 9:30:02 Lidocaine 2% added 20ml Marvin Wong for local to vial Desi Weeks MD anesthetic field 9:30:28 Heparin Flush added 2 Marvin Marvin used for Bag to bags Desi Weeks MD procedure (1000units/500ml field NS) 9:30:36 0.9% NaCl I.V. 100 Marvin Thornton Per ml/hr Desi Wiggins RN physician 9:42:43 Versed I.V. 2 mg Marvin Thornton for Desi Wiggins RN sedation 9:42:49 Fentanyl I.V. 100 Marvin Bullockie leo Wiggins RN sedation 9:49:31 Versed I.V. 1 mg Marvin Thornton for Desi Wiggins RN sedation 9:49:42 Fentanyl I.V. 75 Marvin Wiggins RN sedation Procedure Log Time Note 9:17:05 Time tracking: Regular hours (M-F 7:00 - 5:00) 9:17:09 Plan of Care:Hemodynamics will remain stable., Cardiac rhythm will remain stable., Comfort level will be maintained., Respiratory function will remain adequate., Patient/ family verbilizes understanding of procedure., Procedure tolerated without complication., Recovers from procedure without complications.. 9:18:41 Karl Hernandez RT(R) sent for patient. Start room use. 9:26:02 Patient received from Pre/Post Procedure Room to CCL 1 Alert and oriented. Tansferred to table in Supine position. 9:26:03 Warm blankets applied, and timur hugger turned on for patient comfort. 9:26:04 Correct patient and procedure confirmed by team. 9:26:06 Signed procedure consent form obtained from patient. 9:26:07 ECG and BP/O2 sat monitors applied to patient. 9:26:08 Full Disclosure recording started 9:29:55 Oxygen 2 l/min etCO2 Nasal cannula was administered by Ariane Adams RN; used for procedure; 9:30:02 Lidocaine 2% 20ml vial added to field was administered by Marvin Weeks MD; for local anesthetic; 9:30:28 Heparin Flush Bag (1000units/500ml NS) 2 bags added to field was administered by Marvin Weeks MD; used for procedure; 9:30:36 0.9% NaCl 100 ml/hr I.V. was administered by Norberto Wiggins RN; Per physician; 9:30:47 Vital chart was started 9:31:17 Baseline sample Acquired. 9:31:22 Rhythm: sinus rhythm 9:31:36 H&P Date Dictated: 02/13/2018 Within 30 days and on chart., H&P Addendum completed by physician on day of procedure. (MUST COMPLETE FOR ALL OUTPATIENTS). 9:31:37 Pre-procedure instructions explained to patient. 9:31:38 Pre-op teaching completed and patient verbalized understanding. 9:31:40 Family in patients room. 9:31:42 Patient NPO since Midnight. 9:32:05 Patient allergic to Other allergyBENADRYL, ZOFRAN 9:32:08 Is the patient allergic to Iodine/contrast media? No. 9:32:10 Is patient on blood thinner?No 9:32:12 Patient diabetic? No. 9:32:18 Previous problem with sedation/anesthesia? No ? 9:32:19 Snore? Yes 9:32:20 Sleep apnea? No 9:32:23 Deviated septum? No 9:32:24 Opens mouth fully? Yes 9:32:24 Sticks out tongue? Yes 9:32:28 Airway obstruction? Yes COPD 9:32:34 Dentures? Yes IN TIGHT 9:32:37 Pre procedure: right dorsailis pedis pulse 2+ Normal; easily identifiable; not easily obliterated 9:32:42 Patient pain scale 0/10 ?. 9:32:56 IV patent on arrival in right antecubital with 0.9% NaCl at KVO. 9:32:59 Lab results completed and on chart. 9:33:02 Right groin area was prepped with chlora-prep and draped in sterile fashion 9:33:03 Alarms reviewed by R. N. 9:33:03 Sharps counted by scrub and verified by R.N. 9:33:07 Use device set Femoral Dx 9:33:08 ACIST Syringe (26347) opened to sterile field. 9:33:09 Bag Decanter (2002) opened to sterile field. 9:33:09 Medline Cath Pack ([id number]) opened to sterile field. 9:33:10 DIAGNOSTIC WIRE .035 260cm J wire (600569) opened to sterile field. 9:33:10 ACIST Hand Control (91796) opened to sterile field. 9:33:11 ACIST Manifold (05922) opened to sterile field. 9:33:11 DIAGNOSTIC Multipack 5Fr catheter set (GY7044) opened to sterile field. 9:33:12 Tegaderm 4 x 4 (1626W) opened to sterile field. 9:33:13 SHEATH Prelude 5Fr 0.035 (AXA-5W-47-035) opened to sterile field. 9:36:06 Physician paged 9:39:21 Zero performed for pressure channel P1 9:42:22 Final Timeout: patient, procedure, and site verified with staff and physician. All members of the team are in agreement. 9:42:24 Right groin site verified by team. 9:42:27 Physical assessment completed. ASA score P 2 - A patient with mild systemic disease as per Marvin Weeks MD. 9:42:29 Sedation plan: IV Moderate Sedation Medication:Versed, Fentanyl 9:42:43 Versed 2 mg I.V. was administered by Norberto Wiggins RN; for sedation; 9::49 Fentanyl 100 mcg I.V. was administered by Norberto Wiggins RN; for sedation; 9:45:57 Procedure started. 9:46:00 Local anesthetic to right femoral artery with Lidocaine 2% by Marvin Weeks MD.INITIAL ACCESS ONLY 9:46:27 A 5 Fr sheath was inserted into the Right Femoral artery 9:46:45 A MULTIPACK Pigtail 5 Fr catheter was advanced over the wire and used for LV Angiography. 9:47:22 LV gram done using SCOTT 9:47:25 Injector settings: Ml/sec: 10, Volume: 20, 9:47:34 EF : 50 % 9:47:35 Catheter removed. 9:48:33 A MULTIPACK 3DRC 5Fr catheter was advanced over the wire and used for Internal mammary arteriography. TO LAD 9:49:00 A MULTIPACK 3DRC 5Fr catheter was advanced over the wire and used for Right Coronary Angiography. 9:49:09 Catheter removed. 9:49:17 A MULTIPACK JL 4.0 5Fr catheter was advanced over the wire and used for Left Coronary Angiography. 9:49:31 Versed 1 mg I.V. was administered by Norberto Wiggins RN; for sedation; 9:49:42 Fentanyl 75 mcg I.V. was administered by Norberto Wiggins RN; for sedation; 9:50:15 Catheter removed. 9:50:34 Sheath removed intact; hemostasis achieved with Exoseal to the Right Femoral artery. 9:50:36 Procedure ended.(Physican Out) 9:50:45 Fluoroscopy time 01.00 minutes. 9:50:49 Flurop Dose total: 127 9:50:49 Fluoroscopy dose: 127 mGy 9:50:58 Contrast amount:Isovue 300 41ml. 9:51:00 Sharps counted by scrub and verified by R.N. 9:51:28 Insertion/operative site no bleeding no hematoma. 9:51:33 Post-op/insertion site Right Femoral artery dressed using a 4 x 4 and Tegaderm. 9:51:36 Post right femoral artery:stable, clean and dry 9:51:37 Post Procedure Pulses reassessed and unchanged 9:51:39 Post-procedure physical assessment completed. ASA score P 2 - A patient with mild systemic disease as per Marvin Weeks MD. 9:51:41 Post procedure rhythm: unchanged. 9:51:44 Estimated blood loss: 5 ml 9:51:46 Post procedure instruction explained to patient.Patient verbalizes understanding. 9:51:46 Patient needs reinforcement of post procedure teaching. 9:51:54 Procedure and supply charges have been captured, reviewed, submitted and are correct. 9:52:00 Procedure Complication : No complications 9:52:14 EXOSEAL 5Fr (EX500) opened to sterile field. 9:52:34 See physician's report for complete and final results. 9:54:28 Vital chart was stopped 9:54:29 Report given to Pre/Post Procedure Room. 9:54:32 Patient transfered to Pre/Post Procedure Room with Stretcher. 9:54:34 Procedure ended. 9:54:34 Full Disclosure recording stopped 9:54:45 End room use (Document Last) Device Usage Item Name Manufacture Quantity Catalog Number Hospital Part Current M inimal Lot# / Charge Number Stock Stock Serial# Code ACIST Syringe Acist 1 [id number] [id number] 167455 306351 2 0 (36605) [employer] Bag Decanter Microtek 1 353357 00138 372172 5 () Medical Inc. Medline Cath Cardinal 1 [id number] 248987 14975 795078 5 Pack Health ([id number]) DIAGNOSTIC WIRE St Cedric 1 789311 171519 682305 379450 3 0 .035 260cm J wire (569616) ACIST Hand Acist 1 02384 516934 835134 064887 5 Control (79899) [employer] Inc ACIST Manifold Acist 1 46265 209685 242883 611464 5 (34519) [employer] Inc DIAGNOSTIC Cardinal 1 [id number] 475984 12274 266350 3 0 Multipack 5Fr Health catheter set (FC7934) Tegaderm 4 x 4 3M 1 1626W 315641 772796 009903 5 (1626W) SHEATH Prelude Merit 1 AXV-9A-24-035 233819 414039 720330 5 5Fr 0.035 Medical (GWH-0Q-92-035) MULTIPACK Cardinal 1 948785 5 Pigtail 5 Fr Health catheter MULTIPACK 3DRC Cardinal 1 728313 5 5Fr catheter Health MULTIPACK JL Cardinal 1 056673 5 4.0 5Fr Health catheter EXOSEAL 5Fr Cardinal 1 EX500 470812 838911 259375 1 0 (EX500) Health Signature Audit Dille Stage Time Signature Unsigned Intra-Procedure 02/15/2018 Alix 9:56:01 AM Counts RT(R) Signatures Monitor : Alix Signature : Counts RT Date : Time : [place] [id number] [place] [address]
--- NOTE | ~2018-02-15 | OP ---
PATIENT NAME: HEBERT GUAMAN MEDICAL RECORD: [id number] :61 LOCATION:D.CAT ADMISSION DATE: SURGEON: BRAD GOODWIN MD DATE OF OPERATION: 02/15/2018 PROCEDURES: 1. Left heart catheterization. 2. Selective coronary angiography. 3. Left ventriculogram. 4. MEEKS angiography. INDICATION: Angina and coronary artery disease. PROCEDURE IN DETAIL: After informed consent was obtained and after a detailed description of risks, benefits as well as alternative therapies, the patient elected to proceed with angiogram and heart catheterization. The right femoral area was prepped and draped in normal sterile fashion. Right femoral artery was cannulated via modified Seldinger technique with placement of 6-Argentine sheath. All catheters exchanged through this sheath. FINDINGS: The left ventriculogram was performed in standard 30-degree SCOTT view, reveals good cardiac wall motion throughout all segments. Overall ejection fraction estimated at 50%. SELECTIVE CORONARY ANGIOGRAPHY: 1. Left main has no significant angiographic disease. 2. Left anterior descending is totally occluded in the proximal vessel. 3. MEEKS to the LAD is widely patent. Distal LAD is widely patent. 4. Left circumflex has mild irregularities, but no flow-limiting stenosis. 5. Right coronary has mild irregularities, but no flow-limiting stenosis. OVERALL IMPRESSION: Wide patency of the left internal mammary artery to the left anterior descending. No disease elsewise. Continue medical management of the coronary artery disease and cardiac risk factors. TRANSINT:[id number] Voice Confirmation ID: [id number] DOCUMENT ID: [id number] BRAD GOODWIN MD at 1859 CC: [id number] DICTATION DATE: 02/15/18 0955 STOCK MANAGER: 02/15/18 1003 DEP CLI 02/15/18 [place] [id number] [place] [address]
[~2018-02-15 07:03] MED LIST changes: +COMPAZINE10 MG PO; +OMNICEF300 MG PO
[2018-02-15 07:39] VITALS: BP 138/88; Ht 167.6 cm; Wt 45.9 kg
[2018-02-15 08:43] LABS: BASOPHILS 0.3 % (0-2); EOSINOPHILS 2.2 % (0-7); HEMATOCRIT 42.2 % (36.0-48.0); HEMOGLOBIN 14.1 g/dL (12-16); IMMATURE GRANULOCYTES 0.2 % (0-5); LYMPHOCYTES 29.9 % (15-50); MCH 28.5 pg (26.0-34.0); MCHC 33.4 g/dL (31.0-37.0); MCV 85.3 fL (80.0-100.0); MEAN PLATELET VOLUME 9.9 fL (7.4-10.4); MONOCYTES 5.7 % (2-11); NEUTROPHILS 61.7 % (40-80); RBC 4.95 10x6/uL (4.00-5.40); WBC 5.8 10x3/uL (4.8-10.8)
[2018-02-15 08:51] LABS: PLATELET COUNT 225 10x3/uL (130-400)
[2018-02-15 08:52] LABS: CALC OSMOLALITY 275 mosm/kg (275-300); CALCIUM 8.6 mg/dL (8.5-10.1); CHLORIDE - SERUM 106 mmol/L (98-107); CREATININE - SERUM 0.6 mg/dL (0.6-1.3); GLUCOSE 94 mg/dL (74-106); SODIUM 140 mmol/L (136-145); UREA NITROGEN 4 mg/dL (7-18); eGFR NON AFRICAN AMERICAN > 90 mL/min (90-120)
[2018-02-15 09:02] LABS: POTASSIUM - SERUM 2.9 mmol/L (3.5-5.1)
== END 2018-02-15 13:00 | disposition home or self-care (01) ==
LOC: D.CATH 07:03
PROVIDERS: Internal Medicine Interventional Cardiology
DX: I25.10 Atherosclerotic heart disease of native coronary artery without angina pectoris (principal); R06.00 Dyspnea, unspecified

== ENCOUNTER 2018-02-19 23:13 | Emergency (ER) | payer MEDICAID ==
[~2018-02-19] VITALS: Ht 167.6 cm; Wt 45.5 kg
[2018-02-19 23:19] VITALS: Ht 167.6 cm; Wt 45.5 kg
[2018-02-20 00:08] LABS: BASOPHILS 0.1 % (0-2); EOSINOPHILS 0.7 % (0-7); HEMATOCRIT 46.7 % (36.0-48.0); HEMOGLOBIN 15.8 g/dL (12-16); IMMATURE GRANULOCYTES 0.3 % (0-5); LYMPHOCYTES 7.3 % (15-50); MCH 29.1 pg (26.0-34.0); MCHC 33.8 g/dL (31.0-37.0); MEAN PLATELET VOLUME 9.7 fL (7.4-10.4); MONOCYTES 7.2 % (2-11); NEUTROPHILS 84.4 % (40-80); PLATELET COUNT 186 10x3/uL (130-400); RBC 5.43 10x6/uL (4.00-5.40); RDW 12.9 % (11.5-14.5); WBC 12.7 10x3/uL (4.8-10.8)
[2018-02-20 00:18] LABS: ALKALINE PHOSPHATASE 110 U/L (46-116); ALT (SGPT) 26 U/L (10-68); BILIRUBIN - TOTAL 0.51 mg/dL (0.2-1.3); CALC OSMOLALITY 283 mosm/kg (275-300); CALCIUM 8.7 mg/dL (8.5-10.1); CARBON DIOXIDE 30.4 mmol/L (21.0-32.0); CHLORIDE - SERUM 104 mmol/L (98-107); CREATININE - SERUM 0.6 mg/dL (0.6-1.3); GLUCOSE 121 mg/dL (74-106); PROTEIN - SERUM 7.5 g/dL (6.4-8.2); SODIUM 142 mmol/L (136-145); UREA NITROGEN 13 mg/dL (7-18); eGFR NON AFRICAN AMERICAN > 90 mL/min (90-120)
[2018-02-20 00:30] LABS: AMYLASE - SERUM 55 U/L (25-115); CKMB 0.5 U/L (0.0-3.6); CREATINE KINASE 42 UL (21-215); LIPASE 129 U/L (73-393); PRO BNP 236 pg/mL (0-125)
[2018-02-20 00:31] LABS: INR 1.08 (0.85-1.17); PROTIME 13.6 SECONDS (11.6-15.0)
[2018-02-20 00:36] LABS: TROPONIN-I < 0.017 ng/mL (0.000-0.060)
[2018-02-20] MEDS ORDERED: PHENERGAN25 M1 PO (03:02)
[2018-02-20 03:15] VITALS: BP 112/82
[2018-03-06] MEDS ORDERED: TOPAMAX200 MG PO (09:05)
== END 2018-02-20 03:15 | disposition home or self-care (01) ==
LOC: D.ER 23:13
PROVIDERS: Family Medicine
DX: K52.9 Noninfective gastroenteritis and colitis, unspecified (principal); K80.20 Calculus of gallbladder without cholecystitis without obstruction; E87.6 Hypokalemia; R11.2 Nausea with vomiting, unspecified; Z86.73 Personal history of transient ischemic attack (TIA), and cerebral infarction without residual deficits; G40.909 Epilepsy, unspecified, not intractable, without status epilepticus; Z95.0 Presence of cardiac pacemaker; I25.810 Atherosclerosis of coronary artery bypass graft(s) without angina pectoris; J44.9 Chronic obstructive pulmonary disease, unspecified; K21.9 Gastro-esophageal reflux disease without esophagitis

== ENCOUNTER 2018-02-24 11:03 | Emergency (ER) | payer MEDICAID ==
[~2018-02-24] VITALS: Ht 167.6 cm; Wt 46.4 kg
[2018-02-24 11:09] VITALS: Ht 167.6 cm; Wt 46.4 kg
[2018-02-24 11:37] LABS: APPEARANCE CLEAR (CLEAR); BILIRUBIN NEGATIVE (NEGATIVE); COLOR YELLOW (YELLOW); GLUCOSE NEGATIVE (NEGATIVE); KETONE NEGATIVE (NEGATIVE); NITRITE NEGATIVE (NEGATIVE); PROTEIN NEGATIVE (NEGATIVE); SPECIFIC GRAVITY 1.005 (1.005-1.020); UROBILINOGEN NORMAL (NORMAL)
[2018-02-24 11:38] LABS: BASOPHILS 0.3 % (0-2); EOSINOPHILS 2.7 % (0-7); HEMATOCRIT 42.5 % (36.0-48.0); HEMOGLOBIN 14.3 g/dL (12-16); IMMATURE GRANULOCYTES 0.2 % (0-5); LYMPHOCYTES 26.3 % (15-50); MCH 28.8 pg (26.0-34.0); MCHC 33.6 g/dL (31.0-37.0); MCV 85.7 fL (80.0-100.0); MEAN PLATELET VOLUME 9.7 fL (7.4-10.4); MONOCYTES 9.3 % (2-11); NEUTROPHILS 61.2 % (40-80); PLATELET COUNT 197 10x3/uL (130-400); RBC 4.96 10x6/uL (4.00-5.40); RDW 12.6 % (11.5-14.5); WBC 6.3 10x3/uL (4.8-10.8)
[2018-02-24 11:50] LABS: ALBUMIN 3.6 g/dL (3.4-5.0); ALKALINE PHOSPHATASE 113 U/L (46-116); ALT (SGPT) 17 U/L (10-68); AMYLASE - SERUM 51 U/L (25-115); BILIRUBIN - TOTAL 0.33 mg/dL (0.2-1.3); CALC OSMOLALITY 281 mosm/kg (275-300); CALCIUM 8.9 mg/dL (8.5-10.1); CARBON DIOXIDE 27.9 mmol/L (21.0-32.0); CHLORIDE - SERUM 106 mmol/L (98-107); CREATININE - SERUM 0.5 mg/dL (0.6-1.3); GLUCOSE 96 mg/dL (74-106); INR 1.09 (0.85-1.17); LIPASE 128 U/L (73-393); PROTEIN - SERUM 7.1 g/dL (6.4-8.2); PROTIME 13.7 SECONDS (11.6-15.0); SODIUM 143 mmol/L (136-145); UREA NITROGEN 5 mg/dL (7-18); eGFR NON AFRICAN AMERICAN > 90 mL/min (90-120)
[2018-02-24 11:51] LABS: POTASSIUM - SERUM 2.9 mmol/L (3.5-5.1)
[2018-02-24] MEDS ORDERED: NORCO 10-325 TA1 TAB PO (14:41)
[2018-02-24 14:51] VITALS: BP 130/77
[2018-03-06] MEDS ORDERED: TOPAMAX200 MG PO (09:05)
== END 2018-02-24 14:51 | disposition home or self-care (01) ==
LOC: D.ER 11:03
PROVIDERS: Family Medicine
DX: K80.80 Other cholelithiasis without obstruction (principal); R11.2 Nausea with vomiting, unspecified; Z86.73 Personal history of transient ischemic attack (TIA), and cerebral infarction without residual deficits; G40.909 Epilepsy, unspecified, not intractable, without status epilepticus; Z95.0 Presence of cardiac pacemaker; Z95.1 Presence of aortocoronary bypass graft; J44.9 Chronic obstructive pulmonary disease, unspecified; K21.9 Gastro-esophageal reflux disease without esophagitis

== ENCOUNTER 2018-03-07 08:30 | Day surgery (SDC) | payer MEDICAID ==
[2018-03-06 09:36] LABS: HEMATOCRIT 42.1 % (36.0-48.0); MCHC 33.3 g/dL (31.0-37.0); MCV 87.3 fL (80.0-100.0); MEAN PLATELET VOLUME 9.3 fL (7.4-10.4); RBC 4.82 10x6/uL (4.00-5.40); WBC 6.5 10x3/uL (4.8-10.8)
[2018-03-06 09:40] LABS: APTT 30.1 SECONDS (22.8-39.4); INR 1.07 (0.85-1.17); PROTIME 13.5 SECONDS (11.6-15.0)
[2018-03-06 09:47] LABS: ALBUMIN 3.8 g/dL (3.4-5.0); ALKALINE PHOSPHATASE 103 U/L (46-116); ALT (SGPT) 21 U/L (10-68); BILIRUBIN - TOTAL 0.45 mg/dL (0.2-1.3); CALC OSMOLALITY 283 mosm/kg (275-300); CALCIUM 9.1 mg/dL (8.5-10.1); CHLORIDE - SERUM 104 mmol/L (98-107); CREATININE - SERUM 0.5 mg/dL (0.6-1.3); GLUCOSE 84 mg/dL (74-106); POTASSIUM - SERUM 3.4 mmol/L (3.5-5.1); PROTEIN - SERUM 7.1 g/dL (6.4-8.2); SODIUM 144 mmol/L (136-145); UREA NITROGEN 6 mg/dL (7-18); eGFR NON AFRICAN AMERICAN > 90 mL/min (90-120)
[~2018-03-07] VITALS: Ht 167.6 cm; Wt 45.4 kg
--- NOTE | ~2018-03-07 | OP ---
PATIENT NAME: HEBERT GUAMAN MEDICAL RECORD: [id number] :61 LOCATION:D.OPS ADMISSION DATE: SURGEON: TALITA KINNEY MD DATE OF OPERATION: 03/07/2018 PREOPERATIVE DIAGNOSES: 1. Patellofemoral syndrome of the right knee. 2. Medial meniscus tear of the right knee. POSTOPERATIVE DIAGNOSIS: Patellofemoral syndrome of the right knee. PROCEDURE: Arthroscopic lateral release, right knee. SURGEON: Talita Kinney MD ANESTHESIA: General. INTRAOPERATIVE COMPLICATIONS: None. SUMMARY OF PATHOLOGIC FINDINGS: The patient did have chondromalacia of the lateral facet of the patella, grade II and III, and some extending to the apex. Very tight lateral retinaculum was noted. Medial and lateral menisci were pristine without evidence of tears. OPERATIVE SUMMARY IN DETAIL: After obtaining the appropriate preoperative orthopedic surgery consent as well as anesthetic consultation, evaluation, and clearance, the patient was brought to the operating room and placed on the operating table in the supine position. After general laryngeal mask was administered, tourniquet was placed about the proximal aspect of the right lower extremity. The right lower extremity was then prepped and draped in routine sterile fashion. The leg was elevated, exsanguinated, and the tourniquet was inflated to 350 mmHg. Routine inferolateral portal was established followed by superomedial portal and anteromedial portal. Diagnostic arthroscopy did reveal the above findings. [place] hook tip ablation was then used to release the lateral retinacular fibers from just below the fibers of the vastus medialis to the inferolateral portal. Having completed this, knee was insufflated with 30 cc of 0.25% Marcaine and 40 mg of Depo-Medrol. Arthroscopy portals were closed in routine interrupted fashion using 4-0 Prolene. Sterile dressings were applied. The patient was awakened and taken to the recovery room in stable condition. All final needle and sponge counts were correct. TRANSINT:[id number] Voice Confirmation ID: [id number] DOCUMENT ID: [id number] TALITA KINNEY MD at 1351 CC: [id number] DICTATION DATE: 03/07/18 1035 [employer]DLE SCHOOL COUNSELOR: 03/07/18 1133 DEP SDC 03/07/18 [facility] [address] [place] [address]
[~2018-03-07 08:30] MED LIST changes: +NORCO 10-325 TA1 TAB PO
[2018-03-07 09:03] VITALS: BP 155/87; Ht 167.6 cm; Wt 45.4 kg
[2018-03-07] MEDS ORDERED: NORCO 10-325 TA1 TAB PO (10:17)
== END 2018-03-07 12:13 | disposition home or self-care (01) ==
LOC: D.OPS 08:30 → D.PAN 09:45 → D.OPS 09:45 → D.PAN 10:45 → D.OPS 12:13
PROVIDERS: Anesthesiology
DX: M25.861 Other specified joint disorders, right knee (principal); S83.241A Other tear of medial meniscus, current injury, right knee, initial encounter

== ENCOUNTER 2018-03-08 05:59 | Emergency (ER) | payer MEDICAID ==
[~2018-03-08] VITALS: Ht 167.6 cm; Wt 46.4 kg
[2018-03-08 06:02] VITALS: Ht 167.6 cm; Wt 46.4 kg
[2018-03-08 07:03] VITALS: BP 136/85
== END 2018-03-08 07:03 | disposition home or self-care (01) ==
LOC: D.ER 05:59
DX: M96.89 Other intraoperative and postprocedural complications and disorders of the musculoskeletal system (principal); S80.01XA Contusion of right knee, initial encounter; W22.8XXA Striking against or struck by other objects, initial encounter; Y93.89 Activity, other specified; Y92.019 Unspecified place in single-family (private) house as the place of occurrence of the external cause; M25.561 Pain in right knee; Z86.73 Personal history of transient ischemic attack (TIA), and cerebral infarction without residual deficits; G40.909 Epilepsy, unspecified, not intractable, without status epilepticus; I25.810 Atherosclerosis of coronary artery bypass graft(s) without angina pectoris; Z95.0 Presence of cardiac pacemaker; J44.9 Chronic obstructive pulmonary disease, unspecified; K21.9 Gastro-esophageal reflux disease without esophagitis; J45.909 Unspecified asthma, uncomplicated

== ENCOUNTER 2018-03-08 09:14 | Inpatient (IN) | payer MEDICAID ==
[~2018-03-08] VITALS: Ht 167.6 cm; Wt 46.4 kg
--- NOTE | ~2018-03-08 | MORECARE ---
CASE MANAGEMENT DISCHARGE SUMMARY PATIENT: HEBERT GUAMAN UNIT: [id number] ADM DATE: 03/09/18 AGE: 52 : 61 SEX: F ROOM/BED: D.2203 AUTHOR: STEPHANI,DOC PHYSICIAN: REFERRING PHYSICIAN: TALITA KINNEY MD DATE OF SERVICE: 03/18/18 Discharge Plan Patient Name: HEBERT GUAMAN Facility: [facility]:[place] : 1965 Planned Disposition: Home Anticipated Discharge Date: Discharge Date: 03/11/2018 Expected LOS: 0 Initial Reviewer: [email or web address] Initial Review Date: 03/10/2018 Generated: 03/18/18 11:00 am Comments DCP- Discharge Planning Updated by [email or web address]: Molly Ashford on 03/11/18 9:[address] Patient Name: HEBERT GUAMAN Admission Status: Elective Accout number: [id number] Admission Date: 03-09-2018 : 1965 Admission Diagnosis: Attending: TALITA KINNEY Current LOS: 2 Anticipated DC Date: Planned Disposition: Home Primary Insurance: MEDICAID [place] Discharge Planning Comments: CM met with patient to assess discharge planning needs. Patient stated that she is independent with her care and plans to return home today, She lives with her , who will be the one to take her home. She has crutches that she received port op, but she needs a walker per PT. I have ordered a walker through [employer] (spoke with Nikole) they will deliver the walker to the hospital. She denies any HH needs. There are 5 steps to enter in her home. CM will continue to follow and assist with dc planning as needed. Spring Assembler Supervisor: Molly Ashford DCPIA - Discharge Planning Initial Assessment Updated by [email or web address]: Molly Ashford on 03/11/18 10:01 am * Is the patient Alert and Oriented? Yes * How many steps to enter\exit or inside your home? * PCP COBIAN * [facility] * Preadmission Environment Home with Family * ADLs Independent * Equipment Crutch * List name and contact numbers for known caregivers / representatives who currently or will assist patient after discharge: LULY () [phone] * Verbal permission to speak to the caregivers and representatives has been obtained from the patient. Yes * Community resources currently utilized None * Additional services required to return to the preadmission environment? Yes * Can the patient safely return to the preadmission environment? Yes * Has this patient been hospitalized within the prior 30 days at any hospital? No Last DP export: 03/11/18 9:06 Patient Name: HEBERT GUAMAN Page [phone] at 1000 All edits/amendments must be made on the electronic document DICTATION DATE: 03/18/18 1000 PROTEIN CHEMIST: SUAD 03/18/18 1000 RPT#: [id number] DC DATE:03/11/18 STATUS: DIS IN [facility] [address] [place] [address] END OF REPORT
--- NOTE | ~2018-03-08 | MORECARE ---
CASE MANAGEMENT DISCHARGE SUMMARY PATIENT: HEBERT GUAMAN UNIT: [id number] ADM DATE: 03/09/18 AGE: 52 : 61 SEX: F ROOM/BED: D.2203 AUTHOR: STEPHANI,DOC PHYSICIAN: REFERRING PHYSICIAN: TALITA KINNEY MD DATE OF SERVICE: 03/11/18 Discharge Plan Patient Name: HEBERT GUAMAN Facility: [facility]:[place] : 1965 Planned Disposition: Home Anticipated Discharge Date: Discharge Date: Expected LOS: Initial Reviewer: [email or web address] Initial Review Date: 03/10/2018 Generated: 03/11/18 11:06 am Comments DCP- Discharge Planning Updated by [email or web address]: Molly Ashford on 03/11/18 9:[address] Patient Name: HEBERT GUAMAN Admission Status: Elective Accout number: [id number] Admission Date: 03-09-2018 : 1965 Admission Diagnosis: Attending: TALITA KINNEY Current LOS: 2 Anticipated DC Date: Planned Disposition: Home Primary Insurance: MEDICAID [place] Discharge Planning Comments: CM met with patient to assess discharge planning needs. Patient stated that she is independent with her care and plans to return home today, She lives with her , who will be the one to take her home. She has crutches that she received port op, but she needs a walker per PT. I have ordered a walker through [employer] (spoke with Nikole) they will deliver the walker to the hospital. She denies any HH needs. There are 5 steps to enter in her home. CM will continue to follow and assist with dc planning as needed. Consumer Insight Manager: Molly Ashford DCPIA - Discharge Planning Initial Assessment Updated by [email or web address]: Molly Ashford on 03/11/18 10:01 am * Is the patient Alert and Oriented? Yes * How many steps to enter\exit or inside your home? * PCP COBIAN * [facility]acy [facility] * Preadmission Environment Home with Family * ADLs Independent * Equipment Crutch * List name and contact numbers for known caregivers / representatives who currently or will assist patient after discharge: LULY () [phone] * Verbal permission to speak to the caregivers and representatives has been obtained from the patient. Yes * Community resources currently utilized None * Additional services required to return to the preadmission environment? Yes * Can the patient safely return to the preadmission environment? Yes * Has this patient been hospitalized within the prior 30 days at any hospital? No External Providers External Provider: [facility] Next Contact Date: Service Request Date: Service Type: Resolution: Reviewer: Comments: Patient Name: HEBERT GUAMAN Page 64733 at 1006 All edits/amendments must be made on the electronic document DICTATION DATE: 03/11/181004 MD PSYCHIATRY: SUAD 03/11/181004 RPT#: [id number] DC DATE: STATUS: ADM IN [facility] [address] [place] [address] END OF REPORT
[2018-03-08 10:59] VITALS: BP 136/86; BMI 16.5
[2018-03-08 16:21] VITALS: BP 136/86; Ht 167.6 cm; Wt 46.4 kg
[2018-03-08 16:52] VITALS: BP 119/86
[2018-03-08 20:00] VITALS: BP 123/78
[2018-03-09] VITALS: BP 138/79
[2018-03-09 04:00] VITALS: BP 132/88
[2018-03-09 06:31] LABS: HEMATOCRIT 37.2 % (36.0-48.0); HEMOGLOBIN 12.1 g/dL (12-16); MCH 28.5 pg (26.0-34.0); MCHC 32.5 g/dL (31.0-37.0); MCV 87.5 fL (80.0-100.0); MEAN PLATELET VOLUME 9.5 fL (7.4-10.4); RBC 4.25 10x6/uL (4.00-5.40); RDW 13.2 % (11.5-14.5); WBC 10.7 10x3/uL (4.8-10.8)
[2018-03-09 09:37] VITALS: BP 153/79
[2018-03-09 16:42] VITALS: BP 125/71
[2018-03-09 19:51] VITALS: BP 123/69
[2018-03-10] VITALS: BP 135/81
[2018-03-10 04:00] VITALS: BP 139/85
[2018-03-10 06:21] LABS: HEMATOCRIT 39.4 % (36.0-48.0); HEMOGLOBIN 12.9 g/dL (12-16); MCHC 32.7 g/dL (31.0-37.0); MCV 88.5 fL (80.0-100.0); MEAN PLATELET VOLUME 9.5 fL (7.4-10.4); RBC 4.45 10x6/uL (4.00-5.40); RDW 13.2 % (11.5-14.5); WBC 8.6 10x3/uL (4.8-10.8)
[2018-03-10 09:22] VITALS: BP 127/77
[2018-03-10 15:23] VITALS: BP 139/84
[2018-03-10 19:56] VITALS: BP 142/80
[2018-03-11 04:00] VITALS: BP 136/77
[2018-03-11 08:52] VITALS: BP 137/80
== END 2018-03-11 13:25 | disposition home or self-care (01) | DRG 921 ==
LOC: D.OPS 09:14 → D.MS 14:38 → D.OPS 03-09 10:11 → D.MS 03-09 10:12
PROVIDERS: Orthopaedic Surgery
DX: M96.830 Postprocedural hemorrhage of a musculoskeletal structure following a musculoskeletal system procedure (principal); I10 Essential (primary) hypertension; Z95.1 Presence of aortocoronary bypass graft; Z95.810 Presence of automatic (implantable) cardiac defibrillator; J44.9 Chronic obstructive pulmonary disease, unspecified

== ENCOUNTER 2018-03-27 08:04 | Day surgery (SDC) | payer MEDICAID ==
[~2018-03-27] VITALS: Ht 167.6 cm; Wt 47.6 kg
[2018-03-27 08:31] LABS: HEMATOCRIT 40.9 % (36.0-48.0); HEMOGLOBIN 13.6 g/dL (12-16); MCH 29.1 pg (26.0-34.0); MCHC 33.3 g/dL (31.0-37.0); MCV 87.4 fL (80.0-100.0); MEAN PLATELET VOLUME 9.3 fL (7.4-10.4); RBC 4.68 10x6/uL (4.00-5.40); RDW 13.1 % (11.5-14.5); WBC 6.2 10x3/uL (4.8-10.8)
[2018-03-27 08:44] LABS: ALBUMIN 3.7 g/dL (3.4-5.0); ALKALINE PHOSPHATASE 101 U/L (46-116); ALT (SGPT) 16 U/L (10-68); BILIRUBIN - TOTAL 0.54 mg/dL (0.2-1.3); CALC OSMOLALITY 282 mosm/kg (275-300); CALCIUM 9.1 mg/dL (8.5-10.1); CHLORIDE - SERUM 105 mmol/L (98-107); CREATININE - SERUM 0.5 mg/dL (0.6-1.3); GLUCOSE 94 mg/dL (74-106); POTASSIUM - SERUM 3.3 mmol/L (3.5-5.1); PROTEIN - SERUM 7.2 g/dL (6.4-8.2); SODIUM 143 mmol/L (136-145); UREA NITROGEN 8 mg/dL (7-18); eGFR NON AFRICAN AMERICAN > 90 mL/min (90-120)
[2018-03-27 08:52] LABS: APTT 29.1 SECONDS (22.8-39.4); INR 1.05 (0.85-1.17); PROTIME 13.3 SECONDS (11.6-15.0)
[2018-03-27 09:30] VITALS: BP 128/86; Ht 167.6 cm; Wt 47.6 kg
[2018-03-27] MEDS ORDERED: OXYCODONE HCL5 M1 PO (11:43)
== END 2018-03-27 16:00 | disposition home or self-care (01) ==
LOC: D.OPS 08:04 → D.PAN 10:15 → D.OPS 10:15
PROVIDERS: Anesthesiology
DX: K80.10 Calculus of gallbladder with chronic cholecystitis without obstruction (principal); J44.9 Chronic obstructive pulmonary disease, unspecified; Z95.0 Presence of cardiac pacemaker; I25.10 Atherosclerotic heart disease of native coronary artery without angina pectoris; Z01.812 Encounter for preprocedural laboratory examination

== ENCOUNTER 2018-05-09 18:37 | Emergency (ER) | payer MEDICAID ==
[~2018-05-09] VITALS: Ht 167.6 cm; Wt 48.2 kg
[~2018-05-09 18:37] MED LIST changes: +OXYCODONE HCL5 M1 PO
[2018-05-09 18:48] VITALS: Ht 167.6 cm; Wt 48.2 kg
[2018-05-09] MEDS ORDERED: BUTALB-APAP-CA1 EACH PO (19:48)
[2018-05-09 20:24] VITALS: BP 136/89
== END 2018-05-09 20:24 | disposition home or self-care (01) ==
LOC: D.ER 18:37
DX: G43.909 Migraine, unspecified, not intractable, without status migrainosus (principal)

== ENCOUNTER → 2018-09-17 08:53 | Outpatient (CLI) | payer MEDICAID ==
[~2018-09-17 08:53] MED LIST changes: +CYCLOBENZAPRINE10 MG PO; +CYMBALTA30 MG PO; +EMGALITY; +FLUTICASONE PRO16 GM NASAL; +RANITIDINE HCL150 M1 PO; +SULFAMETHOXAZOL1 TA3 PO; +ULTRAM50 MG PO; +VIBRAMYCIN 100100 MG PO; +VOLTAREN75 MG PO
== END | disposition home or self-care (01) ==
LOC: D.RAD 08:53
DX: M25.561 Pain in right knee (principal)

== ENCOUNTER 2018-10-10 18:13 | Emergency (ER) | payer MEDICAID ==
[~2018-10-10] VITALS: Ht 167.6 cm; Wt 55.9 kg
[~2018-10-10 18:13] MED LIST changes: -CYCLOBENZAPRINE10 MG PO; -CYMBALTA30 MG PO; -EMGALITY; -FLUTICASONE PRO16 GM NASAL; -RANITIDINE HCL150 M1 PO; -SULFAMETHOXAZOL1 TA3 PO; -ULTRAM50 MG PO; -VIBRAMYCIN 100100 MG PO; -VOLTAREN75 MG PO
[2018-10-10 18:30] VITALS: Ht 167.6 cm; Wt 55.9 kg
[2018-10-10] MEDS ORDERED: K-DUR20 MEQ PO (18:35)
[2018-10-10] MEDS ORDERED: FLUTICASONE PRO16 GM NASAL (18:36)
[2018-10-10] MEDS ORDERED: SULFAMETHOXAZOL1 TA3 PO (18:36)
[2018-10-10] MEDS ORDERED: EMGALITY (18:37)
[2018-10-10] MEDS ORDERED: VIBRAMYCIN 100100 MG PO (20:54)
[2018-10-10 21:12] VITALS: BP 148/86
== END 2018-10-10 21:12 | disposition home or self-care (01) ==
LOC: D.ER 18:13
DX: R22.9 Localized swelling, mass and lump, unspecified (principal)

== ENCOUNTER 2018-10-12 09:13 | Emergency (ER) | payer MEDICAID ==
[~2018-10-12] VITALS: Ht 167.6 cm; Wt 55.9 kg
[~2018-10-12 09:13] MED LIST changes: +EMGALITY; +FLUTICASONE PRO16 GM NASAL; +SULFAMETHOXAZOL1 TA3 PO; +VIBRAMYCIN 100100 MG PO
[2018-10-12 09:16] VITALS: Ht 167.6 cm; Wt 55.9 kg
[2018-10-12 09:45] LABS: BASOPHILS 0.1 % (0-2); EOSINOPHILS 2.1 % (0-7); HEMATOCRIT 45.7 % (36.0-48.0); HEMOGLOBIN 15.8 g/dL (12-16); IMMATURE GRANULOCYTES 0.1 % (0-5); MCHC 34.6 g/dL (31.0-37.0); MCV 83.9 fL (80.0-100.0); MEAN PLATELET VOLUME 9.5 fL (7.4-10.4); MONOCYTES 8.9 % (2-11); NEUTROPHILS 66.8 % (40-80); RBC 5.45 10x6/uL (4.00-5.40); RDW 12.6 % (11.5-14.5); WBC 7.6 10x3/uL (4.8-10.8)
[2018-10-12 09:56] LABS: PLATELET COUNT 269 10x3/uL (130-400)
[2018-10-12 09:58] LABS: ALKALINE PHOSPHATASE 234 U/L (46-116); ALT (SGPT) 20 U/L (10-68); BILIRUBIN - TOTAL 0.48 mg/dL (0.2-1.3); CALC OSMOLALITY 274 mosm/kg (275-300); CALCIUM 9.2 mg/dL (8.5-10.1); CARBON DIOXIDE 26.9 mmol/L (21.0-32.0); CHLORIDE - SERUM 103 mmol/L (98-107); CREATININE - SERUM 0.7 mg/dL (0.6-1.3); GLUCOSE 78 mg/dL (74-106); PROTEIN - SERUM 8.1 g/dL (6.4-8.2); SODIUM 139 mmol/L (136-145); UREA NITROGEN 8 mg/dL (7-18); eGFR NON AFRICAN AMERICAN > 90 mL/min (90-120)
[2018-10-12 10:07] LABS: T4 THYROXIN - FREE 0.82 ng/dL (0.76-1.46); THYROID STIMULATING HORMONE 1.37 uIU/mL (0.36-3.74)
[2018-10-12 10:09] LABS: C-REACTIVE PROTEIN 0.2 mg/dL (0.0-0.9)
[2018-10-12 11:10] LABS: CKMB 0.5 U/L (0.0-3.6); CREATINE KINASE 73 UL (21-215)
[2018-10-12 11:12] LABS: TROPONIN-I < 0.017 ng/mL (0.000-0.060)
[2018-10-12 11:30] LABS: LIPASE 92 U/L (73-393)
[2018-10-12 11:32] LABS: AMYLASE - SERUM 785 U/L (25-115)
[2018-10-12 13:20] VITALS: BP 137/86
== END 2018-10-12 13:21 | disposition home or self-care (01) ==
LOC: D.ER 09:13
PROVIDERS: Family Medicine
DX: B26.9 Mumps without complication (principal)

== ENCOUNTER 2018-10-25 14:48 | Emergency (ER) | payer MEDICAID ==
[2018-10-25 15:02] VITALS: BMI 20.2
[2018-10-25] MEDS ORDERED: ULTRAM50 MG PO (17:02)
[2018-10-25] MEDS ORDERED: CYCLOBENZAPRINE10 MG PO (17:03)
[2018-10-25 17:24] VITALS: BP 120/84
[2018-12-03] MEDS ORDERED: CYMBALTA30 MG PO (12:32)
[2018-12-03] MEDS ORDERED: RANITIDINE HCL150 M1 PO (12:35)
== END 2018-10-25 17:26 | disposition home or self-care (01) ==
LOC: D.ER 14:48
DX: R07.81 Pleurodynia (principal)

== ENCOUNTER → 2018-10-31 09:36 | Outpatient (CLI) | payer MEDICAID ==
[2018-10-25 15:02] VITALS: BMI 20.2
[~2018-10-31 09:36] MED LIST changes: +CYCLOBENZAPRINE10 MG PO; +ULTRAM50 MG PO
== END | disposition home or self-care (01) ==
LOC: D.US 09:36
PROVIDERS: ATTEND Surgery
DX: I83.893 Varicose veins of bilateral lower extremities with other complications (principal)

== ENCOUNTER 2018-12-04 06:34 | Day surgery (SDC) | payer MEDICAID ==
[~2018-12-04] VITALS: Ht 167.6 cm; Wt 56.7 kg
[~2018-12-04 06:34] MED LIST changes: +CYMBALTA30 MG PO; +RANITIDINE HCL150 M1 PO
[2018-12-04 07:04] LABS: HEMATOCRIT 43.1 % (36.0-48.0); MCH 29.1 pg (26.0-34.0); MCHC 34.8 g/dL (31.0-37.0); MCV 83.5 fL (80.0-100.0); MEAN PLATELET VOLUME 9.4 fL (7.4-10.4); RBC 5.16 10x6/uL (4.00-5.40); RDW 12.6 % (11.5-14.5); WBC 8.1 10x3/uL (4.8-10.8)
[2018-12-04 07:29] LABS: CALC OSMOLALITY 280 mosm/kg (275-300); CALCIUM 8.8 mg/dL (8.5-10.1); CARBON DIOXIDE 28.4 mmol/L (21.0-32.0); CHLORIDE - SERUM 103 mmol/L (98-107); CREATININE - SERUM 0.6 mg/dL (0.6-1.3); GLUCOSE 93 mg/dL (74-106); POTASSIUM - SERUM 3.5 mmol/L (3.5-5.1); SODIUM 142 mmol/L (136-145); UREA NITROGEN 8 mg/dL (7-18); eGFR NON AFRICAN AMERICAN > 90 mL/min (90-120)
[2018-12-04 07:59] VITALS: BP 141/97; Ht 167.6 cm; Wt 56.7 kg
--- NOTE | 2018-12-04 08:12 | NUR ---
SPOKE WITH DR CHRISTA OCAMPO PATIENT'S PROCEDURE AND CARDIAC CLEARANCE. WILL COME AND SEE PATIENT IN OUTPATIENT.
--- NOTE | 2018-12-04 08:22 | NUR ---
PSYCH HERE FOR EVALUATION OF PATIENT.
--- NOTE | 2018-12-04 08:30 | NUR ---
DR. VIVAR NOTIFIED AND REVIEWED PT'S BEHAVIOR AND ASSESSMENT RESULTS. PT IS A LOW RISK PER DR. VIVAR. DR. VIVAR STATED TO GIVE RESOURCES TO PT AT TIME OF DISCHARGE. NO FURTHER ORDERS AT THIS TIME. RESOURCES REVIEWED WITH PT AND SHE VERBALIZED UNDERSTANDING.
--- NOTE | 2018-12-04 16:09 | OP ---
PATIENT NAME: HEBERT GUAMAN MEDICAL RECORD: [id number] :61 LOCATION:D.OPS ADMISSION DATE: SURGEON: MICHAEL PEREA MD DATE OF OPERATION: 12/04/2018 PREOPERATIVE DIAGNOSES: 1. Pathologic bilateral greater saphenous reflux. 2. Pathologic left lesser saphenous venous reflux. 3. Symptomatic varicose veins of bilateral lower extremities. POSTOPERATIVE DIAGNOSES: 1. Pathologic bilateral greater saphenous reflux. 2. Pathologic left lesser saphenous venous reflux. 3. Symptomatic varicose veins of bilateral lower extremities. PROCEDURES: 1. Right greater saphenous vein radiofrequency VNUS ablation. The length of the vein ablated was 59.5 cm. 2. Left greater saphenous VNUS radiofrequency ablation. The length of the vein ablated was 58.0 cm. 3. Left lesser saphenous vein VNUS radiofrequency ablation. The length of the vein ablated was 24 cm. 4. Bilateral lower extremity avulsion phlebectomies times 14. SURGEON: Michael Perea MD EMERGENCY VEHICLE OPERATIONS INSTRUCTOR: None. BLOOD LOSS: 25 cc. ANESTHESIA: General. COMPLICATIONS: None. The risks, possible complications and alternatives to the procedure were explained to the patient. She elects to proceed. The discussion specifically included, but was not limited to, bleeding requiring emergency reoperation, infection, persistent or recurrent varicosities, eschars, regrowth of varicose veins. OPERATIVE COURSE: The patient was conveyed to the operating room electively on 12/04/2018. General anesthesia was induced by the anesthesia staff. The patient was placed in the reverse Trendelenburg position. I percutaneously accessed the right greater saphenous vein under ultrasonographic guidance. A guidewire passed easily. A small skin yvonne was accomplished. A dilator sheath was advanced over the wire. The dilator and wire were removed. Through the sheath, a radiofrequency catheter was advanced. The patient was then positioned in the Trendelenburg position. Radiofrequency catheter was advanced to the saphenofemoral junction and then was withdrawn 2 cm within the greater saphenous vein. Under ultrasonographic guidance, I injected a crystalloid solution into the perivenular tissues in order to act as a heat sink in order to avoid thermal injury to surrounding structures such as nerves. The radiofrequency catheter was activated twice. With each 7 cm pullback, it was activated an additional time. OPERATIVE REPORT [id number] HEBERT GUAMAN Endovascular hardware was removed. The puncture site was closed with a horizontal mattress 4-0 Vicryl Rapide suture. I then went around to the left side. Under ultrasonographic guidance, I percutaneously accessed the left greater saphenous vein near the ankle. Guidewire passed easily. A dilator sheath was advanced. The dilator and wire were removed. Through the sheath, I advanced a radiofrequency catheter. This was all done with the patient in the reverse Trendelenburg position. I then placed her in the Trendelenburg position. The catheter was advanced to the saphenofemoral junction. I then withdrew the catheter 2 cm within the greater saphenous vein. Under ultrasonographic guidance, I injected a crystalloid solution into the perivenular tissues in order to act as a heat sink to prevent thermal injury to surrounding structures such as nerves. The radiofrequency catheter was activated twice. With each 7 cm pullback, it was activated again. The lengths of the greater saphenous vein, which were treated are listed above. Prior to the procedure, the patient had her varicose veins marked in the holding area. A female homogenizer operator was present for this. The aly were still present. Skin nicks were made on the skin and through these, the phlebectomy hook was inserted and avulsion phlebectomies were performed. The patient was then positioned prone. Under ultrasonographic guidance, I percutaneously accessed the lesser saphenous vein in an antegrade fashion. A guidewire passed easily. A dilator sheath was advanced over the wire. The dilator and wire were removed. This was done with the patient in the reverse Trendelenburg position. The patient was then positioned in the Trendelenburg position. The catheter was advanced to the saphenopopliteal junction. I then withdrew the catheter 2 cm within the lesser saphenous vein. I then injected a crystalloid solution into the perivenular tissues in order to act as a heat sink preventing damage to surrounding structures such as nerves. With each 7 cm pullback, the radiofrequency catheter was activated. Endovascular hardware was removed. The puncture site was closed with 4-0 Vicryl Rapide suture. On the back side of the lower extremities, the varicose veins had been marked and small skin incisions were accomplished. Through the skin incisions, avulsion phlebectomies were performed with the phlebectomy hook. The patient was then positioned supine. Sterile dressings were applied. The patient was then extubated and conveyed to the post-anesthesia care unit where she was in stable condition. I will plan for her to see my nurse in the office on Sunday to have the dressings removed. She is being dismissed home with hydrocodone for pain. TRANSINT:[id number] Voice Confirmation ID: [id number] DOCUMENT ID: [id number] MICHAEL PEREA MD at 1609 CC: [id number] DICTATION DATE: 12/04/18 1251 TAPE RECORDER MECHANIC: 12/04/18 1317 [address] [place] [id number] [place] [id number]
--- NOTE | 2018-12-04 17:55 | NUR ---
1440 IV REMOVED VOIDED. INSTRUCTIONS GIVEN AND DRESSINGS CDI.
--- NOTE | 2018-12-06 16:51 | CN ---
PATIENT NAME:HEBERT LANE MEDICAL RECORD: [id number] : 61 LOCATION:D.OPS ADMIT DATE: ACCOUNT: [id number] CONSULTING PHYSICIAN: BRAD GOODWIN MD REFERRING PHYSICIAN: KALI PEREA MD DATE OF CONSULTATION: 12/04/2018 CARDIOLOGY CONSULTATION DIAGNOSES: 1. Preoperative evaluation. 2. Paroxysmal atrial fibrillation. 3. Coronary artery disease. 4. Previous percutaneous transluminal coronary angioplasty stent. 5. Chronic obstructive pulmonary disease. 6. Smoking history. 7. Sick sinus syndrome. 8. Status post pacemaker. 8. Abnormal ECG, right bundle branch block. HISTORY OF PRESENT ILLNESS: Mrs. Lane is here for a procedure under general anesthesia. She does not have any cardiac problems. She has had no chest pain or chest discomfort recently. Her last cardiac intervention was over 5 years ago. She has a history of paroxysmal atrial fibrillation, maintaining sinus rhythm on propafenone. She has a pacemaker. Pacemaker was interrogated within the last month. This was normal. PHYSICAL EXAMINATION: GENERAL APPEARANCE: Well-nourished, well-developed, appears stated age. Level of distress, comfortable. PSYCHIATRIC: Mental status, alert, normal affect. Orientation, oriented to time, place and person. EYES: Lids and conjunctiva, noninjected. No discharge, no pallor. ENT: Lips, teeth, gums, normal dentition. Oropharynx, no cyanosis, no pallor. NECK: Carotid arteries, bilateral normal upstroke, no bruits, no thrills. JUGULAR VEINS: No jugular venous pressure or distention. CERVICAL LYMPH NODES: Nontender, nonenlarged. THYROID: Not enlarged. Nontender. No nodules. LUNGS: Respiratory effort, unlabored. CHEST: Normal curvature. No thoracic deformity. No chest wall tenderness. Percussion, resonant. Auscultation, clear. No wheezes, no rales, no rhonchi. CARDIOVASCULAR: Precordial exam, nondisplaced. No heaves or pericardial thrills. Rate and rhythm, regular. Heart sounds, normal S1, normal S2. No S3, no gallop, no rub. Systolic murmur, not heard. Diastolic murmur, not heard. EXTREMITIES: No cyanosis, no edema. Peripheral pulses, full and equal in all extremities, except as noted. No bruits appreciated. ABDOMEN: Soft, nondistended. Normal aorta. No bruit. Nontender. No masses. Liver, nontender, no hepatomegaly. Spleen, nontender, no splenomegaly. MUSCULOSKELETAL: No joint tenderness. No joint swelling. No erythema. NEUROLOGICAL: Normal gait, normal strength, normal tone. SKIN: Warm and dry. OVERALL IMPRESSION: Cardiac history, but stable at this time, no ongoing signs or symptoms of ischemia. No further dysrhythmia. Pacemaker is functioning properly. Proceed with operation at low cardiac risk with no other cardiac CONSULT REPORT [id number] HEBERT LANE workup is necessary prior to the operation. TRANSINT:[id number] Voice Confirmation ID: [id number] DOCUMENT ID: [id number] BRAD GOODWIN MD at 1651 CC: [id number] DICTATION DATE: 12/04/18933 PHOTOGRAPHIC DOUBLE: 12/04/18 1331 [facility] 12/04/18 [place] [id number] [place] [address]
== END 2018-12-04 14:20 | disposition home or self-care (01) ==
LOC: D.OPS 06:34
PROVIDERS: Anesthesiology; ATTEND Surgery
DX: I87.2 Venous insufficiency (chronic) (peripheral) (principal); I83.893 Varicose veins of bilateral lower extremities with other complications; Z01.812 Encounter for preprocedural laboratory examination

== ENCOUNTER 2019-01-19 18:55 | Emergency (ER) | payer MEDICAID ==
[~2019-01-19] VITALS: Ht 167.6 cm; Wt 56.8 kg
[2019-01-19 19:00] VITALS: Ht 167.6 cm; Wt 56.8 kg
[2019-01-19] MEDS ORDERED: VOLTAREN75 MG PO (20:10)
[2019-01-19] MEDS ORDERED: CYCLOBENZAPRINE10 MG PO (20:10)
[2019-01-19 21:35] VITALS: BP 130/68
== END 2019-01-19 21:00 | disposition home or self-care (01) ==
LOC: D.ER 18:55
DX: M25.562 Pain in left knee (principal); S43.402A Unspecified sprain of left shoulder joint, initial encounter; W18.30XA Fall on same level, unspecified, initial encounter; Y93.89 Activity, other specified; Y92.89 Other specified places as the place of occurrence of the external cause

== ENCOUNTER → 2019-02-17 12:20 | Outpatient (CLI) | payer MEDICAID ==
[2019-01-19 19:00] VITALS: BMI 20.2
[~2019-02-17 12:20] MED LIST changes: +VOLTAREN75 MG PO
--- NOTE | 2019-02-17 14:41 | NUR ---
HEBERT GUAMAN 1965 LEFT SHOULDER ARTHROGRAM. EXAM PREFORMED BY DR DUKE. TIME OUT PERFORMED [address] DUKE AND MABEL LEMUS RT(R)
== END | disposition home or self-care (01) ==
LOC: D.RAD 02-07 14:00 → D.CT 02-07 15:00 → D.RAD 12:20
PROVIDERS: ATTEND Clinical Nurse Specialist Family Health
DX: M25.512 Pain in left shoulder (principal)

== ENCOUNTER → 2019-03-12 12:49 | Outpatient (CLI) | payer MEDICAID ==
[2019-01-19 19:00] VITALS: BMI 20.2
== END | disposition home or self-care (01) ==
LOC: D.CT 12:49
PROVIDERS: ATTEND Clinical Nurse Specialist Family Health
DX: M54.12 Radiculopathy, cervical region (principal)

== ENCOUNTER → 2019-04-21 11:03 | Outpatient (CLI) | payer MEDICAID ==
[2019-01-19 19:00] VITALS: BMI 20.2
== END | disposition home or self-care (01) ==
LOC: D.US 11:03
PROVIDERS: ATTEND Nurse Practitioner
DX: R74.8 Abnormal levels of other serum enzymes (principal)

== ENCOUNTER → 2019-09-26 08:59 | Outpatient (CLI) | payer MEDICAID ==
[2019-01-19 19:00] VITALS: BMI 20.2
== END | disposition home or self-care (01) ==
LOC: D.RT 08-22 15:00
PROVIDERS: ATTEND Internal Medicine Pulmonary Disease
DX: J45.909 Unspecified asthma, uncomplicated (principal)

== ENCOUNTER 2019-12-30 16:52 | Inpatient (IN) | payer MEDICAID ==
[~2019-12-30] VITALS: Ht 167.6 cm; Wt 61.7 kg
[2019-12-30 17:26] VITALS: BP 137/90; BMI 22.0
[2019-12-30] MEDS ORDERED: HYDROCODON-ACE1 EA10 PO (17:34)
[2019-12-30] MEDS ORDERED: AZELASTINE137 MCG/0. NASAL (17:35)
[2019-12-30] MEDS ORDERED: IPRAT-ALBUT 0.5-3 ML UPD (17:36)
[2019-12-30 18:52] LABS: BASOPHILS 0.5 % (0-2); EOSINOPHILS 2.8 % (0-7); HEMATOCRIT 43.1 % (36.0-48.0); HEMOGLOBIN 14.5 g/dL (12-16); IMMATURE GRANULOCYTES 0.2 % (0-5); LYMPHOCYTES 32.4 % (15-50); MCH 28.2 pg (26.0-34.0); MCHC 33.6 g/dL (31.0-37.0); MCV 83.9 fL (80.0-100.0); MEAN PLATELET VOLUME 9.4 fL (7.4-10.4); NEUTROPHILS 56.1 % (40-80); PLATELET COUNT 234 10x3/uL (130-400); RBC 5.14 10x6/uL (4.00-5.40); RDW 12.9 % (11.5-14.5); WBC 6.1 10x3/uL (4.8-10.8)
[2019-12-30 19:14] LABS: CALC OSMOLALITY 278 mosm/kg (275-300); CALCIUM 8.8 mg/dL (8.5-10.1); CARBON DIOXIDE 28.1 mmol/L (21.0-32.0); CHLORIDE - SERUM 104 mmol/L (98-107); CREATININE - SERUM 0.6 mg/dL (0.6-1.3); GLUCOSE 96 mg/dL (74-106); POTASSIUM - SERUM 3.2 mmol/L (3.5-5.1); SODIUM 141 mmol/L (136-145); UREA NITROGEN 6 mg/dL (7-18); eGFR NON AFRICAN AMERICAN > 90 mL/min (90-120)
[2019-12-30 20:00] VITALS: BP 138/91
[2019-12-31 04:00] VITALS: BP 143/83
--- NOTE | 2019-12-31 05:35 | NUR ---
I have reviewed this patient and I concur with the Shift Assessment completed by the Licensed Practical Nurse today this shift.
[2019-12-31 06:19] LABS: BASOPHILS 0.3 % (0-2); EOSINOPHILS 2.2 % (0-7); HEMATOCRIT 42.6 % (36.0-48.0); HEMOGLOBIN 14.3 g/dL (12-16); IMMATURE GRANULOCYTES 0.1 % (0-5); LYMPHOCYTES 25.8 % (15-50); MCH 27.9 pg (26.0-34.0); MCHC 33.6 g/dL (31.0-37.0); MEAN PLATELET VOLUME 9.7 fL (7.4-10.4); MONOCYTES 7.2 % (2-11); NEUTROPHILS 64.4 % (40-80); PLATELET COUNT 258 10x3/uL (130-400); RBC 5.13 10x6/uL (4.00-5.40); RDW 12.7 % (11.5-14.5)
[2019-12-31 06:28] LABS: CALC OSMOLALITY 273 mosm/kg (275-300); CALCIUM 8.6 mg/dL (8.5-10.1); CARBON DIOXIDE 26.8 mmol/L (21.0-32.0); CHLORIDE - SERUM 102 mmol/L (98-107); CREATININE - SERUM 0.6 mg/dL (0.6-1.3); GLUCOSE 109 mg/dL (74-106); MAGNESIUM - SERUM 1.7 mg/dL (1.8-2.4); PHOSPHOROUS 3.3 mg/dL (2.5-4.9); SODIUM 138 mmol/L (136-145); UREA NITROGEN 5 mg/dL (7-18); eGFR NON AFRICAN AMERICAN > 90 mL/min (90-120)
--- NOTE | 2019-12-31 07:20 | NUR ---
REC'D IN BED AWAKE AND ALERT. RESP EVEN AND UNLABORED WITH NO DISTRESS NOTED. CAN EXPRESS NEEDS AND WANTS. NO C/O NOTED OR VOICED. PT IS [place], TOOK HEARING AIDE HOME. ASSESSMENT COMPLETED. C/L IN REACH AT BEDSIDE.
[2019-12-31 09:01] VITALS: BP 145/98
[2019-12-31 13:36] VITALS: BP 151/100
[2019-12-31 14:57] VITALS: BMI 21.9
[2019-12-31 18:13] LABS: CKMB 2.1 U/L (0.0-3.6); CREATINE KINASE 187 UL (21-215)
[2019-12-31 18:14] LABS: TROPONIN-I < 0.017 ng/mL (0.000-0.060)
[2019-12-31 18:41] VITALS: BP 150/93
[2019-12-31 22:20] VITALS: BP 142/82
[2020-01-01 01:07] LABS: CKMB 1.2 U/L (0.0-3.6); CREATINE KINASE 154 UL (21-215); TROPONIN-I < 0.017 ng/mL (0.000-0.060)
--- NOTE | 2020-01-01 03:53 | NUR ---
I have reviewed this patient and I concur with the Shift Assessment completed by the Licensed Practical Nurse today this shift.
[2020-01-01 07:02] LABS: HEMATOCRIT 41.7 % (36.0-48.0); HEMOGLOBIN 13.8 g/dL (12-16); LYMPHOCYTES 24.3 % (15-50); MCH 27.5 pg (26.0-34.0); MCHC 33.1 g/dL (31.0-37.0); MCV 83.1 fL (80.0-100.0); MEAN PLATELET VOLUME 9.1 fL (7.4-10.4); NEUTROPHILS 66.1 % (40-80); PLATELET COUNT 241 10x3/uL (130-400); RBC 5.02 10x6/uL (4.00-5.40); RDW 12.4 % (11.5-14.5); WBC 5.4 10x3/uL (4.8-10.8)
[2020-01-01 07:29] LABS: CALC OSMOLALITY 267 mosm/kg (275-300); CALCIUM 8.6 mg/dL (8.5-10.1); CARBON DIOXIDE 23.2 mmol/L (21.0-32.0); CHLORIDE - SERUM 102 mmol/L (98-107); CKMB 0.9 U/L (0.0-3.6); CREATINE KINASE 106 UL (21-215); CREATININE - SERUM 0.6 mg/dL (0.6-1.3); GLUCOSE 125 mg/dL (74-106); PHOSPHOROUS 3.6 mg/dL (2.5-4.9); POTASSIUM - SERUM 3.3 mmol/L (3.5-5.1); SODIUM 135 mmol/L (136-145); TROPONIN-I < 0.017 ng/mL (0.000-0.060); UREA NITROGEN 5 mg/dL (7-18); eGFR NON AFRICAN AMERICAN > 90 mL/min (90-120)
[2020-01-01 08:00] VITALS: BP 124/82
[2020-01-01 12:00] VITALS: BP 141/83
[2020-01-01 15:32] VITALS: BP 139/89
[2020-01-01 20:00] VITALS: BP 129/89
[2020-01-02 04:00] VITALS: BP 131/86
[2020-01-02 04:49] LABS: BASOPHILS 0.4 % (0-2); EOSINOPHILS 3.3 % (0-7); HEMATOCRIT 38.8 % (36.0-48.0); HEMOGLOBIN 12.7 g/dL (12-16); IMMATURE GRANULOCYTES 0.2 % (0-5); LYMPHOCYTES 34.6 % (15-50); MCH 27.5 pg (26.0-34.0); MCHC 32.7 g/dL (31.0-37.0); MCV 84.2 fL (80.0-100.0); MEAN PLATELET VOLUME 9.4 fL (7.4-10.4); MONOCYTES 8.7 % (2-11); NEUTROPHILS 52.8 % (40-80); PLATELET COUNT 236 10x3/uL (130-400); RBC 4.61 10x6/uL (4.00-5.40); RDW 12.9 % (11.5-14.5); WBC 5.4 10x3/uL (4.8-10.8)
[2020-01-02 05:00] LABS: CALC OSMOLALITY 278 mosm/kg (275-300); CALCIUM 8.2 mg/dL (8.5-10.1); CARBON DIOXIDE 25.5 mmol/L (21.0-32.0); CHLORIDE - SERUM 107 mmol/L (98-107); CREATININE - SERUM 0.7 mg/dL (0.6-1.3); GLUCOSE 110 mg/dL (74-106); MAGNESIUM - SERUM 1.9 mg/dL (1.8-2.4); PHOSPHOROUS 3.4 mg/dL (2.5-4.9); POTASSIUM - SERUM 3.4 mmol/L (3.5-5.1); SODIUM 141 mmol/L (136-145); UREA NITROGEN 4 mg/dL (7-18); eGFR NON AFRICAN AMERICAN > 90 mL/min (90-120)
--- NOTE | 2020-01-02 05:33 | NUR ---
IV INFULTRATED. NEW IV SITED RT WRIST 22G ATTEMPTSX1. PT TOLERATED WELL. IV FLUIDS CONTINUED.
--- NOTE | 2020-01-02 09:00 | NUR ---
SHE IS WALKING AROUND THE ROOM LOOKING OUT THE WINDOW AT THE STORM. DENIES ANY NEEDS AT THIS TIME. THE CALL LIGHT IS WITHIN REACH.
[2020-01-02 09:10] VITALS: Ht 167.6 cm; Wt 61.7 kg
[2020-01-02 09:26] VITALS: BP 130/82
[2020-01-02 12:56] VITALS: BP 132/84
--- NOTE | 2020-01-02 14:35 | NUR ---
NUTRITION F/U PT TOLERATING BLAND/GI DIET. 100% INTAKE RECENT MEALS. WILL CONTINUE TO PROVIDE DIET, MONITOR PO INTAKE. RD FOLLOWING
--- NOTE | 2020-01-02 15:01 | MORECARE ---
CASE MANAGEMENT DISCHARGE SUMMARY PATIENT: HEBERT GUAMAN CHAKA UNIT: [id number] ADM DATE: 12/30/19 AGE: 54 : 61 SEX: F ROOM/BED: D.2222 AUTHOR: SANTHOSH STYLES PHYSICIAN: REFERRING PHYSICIAN: DULCE COBIAN MD DATE OF SERVICE: 01/02/20 Discharge Plan Patient Name: HEBERT GUAMAN Facility: [facility]:[place] : 1965 Planned Disposition: Home Anticipated Discharge Date: Discharge Date: Expected LOS: Initial Reviewer: [email or web address] Initial Review Date: 12/30/2019 Generated: 01/02/20 4:01 pm Comments DCP- Discharge Planning Updated by [email or web address]: Ibis Freitas on 01/02/20 1:[address] Patient Name: HEBERT GUAMAN Admission Status: Elective Accout number: [id number] Admission Date: 12-30-2019 : 1965 Admission Diagnosis:INFECTIOUS GASTROENTERITIS AND COLITIS, UNSPECIFIED Attending: DULCE COBIAN Current LOS: 3 Anticipated DC Date: Planned Disposition: Home Primary Insurance: MEDICAID [place] Discharge Planning Comments: CM met with patient to complete initial dc planning assessment. CM educated patient on the CM role and verbal consent given by patient to complete assessment. Patient lives at home with family. Patient is independent. At discharge patient plans to return home and feels this is a safe discharge. CM discussed availability of home health, rehab services, and medical equipment. Patient will have family to transport home. Patient denied known discharge needs at this time. CM will continue to follow and will assist as needed. Bundle Wrapper: Ibis Freitas DCPIA - Discharge Planning Initial Assessment Updated by [email or web address]: Ibis Freitas on 01/02/20 2:50 pm * Is the patient Alert and Oriented? Yes * PCP ARANZA * [facility]acy [facility] * Preadmission Environment Home with Family * ADLs Independent * Other Equipment NEBS * Community resources currently utilized None * Additional services required to return to the preadmission environment? No * Can the patient safely return to the preadmission environment? Yes * Has this patient been hospitalized within the prior 30 days at any hospital? No Patient Name: HEBERT GUAMAN Page [phone] at 1501 All edits/amendments must be made on the electronic document DICTATION DATE: 01/02/201500 REAL ESTATE LAWYER: SUAD 01/02/201500 RPT#: [id number] DC DATE: STATUS: ADM IN [facility] [address] [place] [address] END OF REPORT
[2020-01-02 17:22] VITALS: BP 145/84
--- NOTE | 2020-01-02 19:00 | NUR ---
BEDSIDE REPORT RECEIVED AND CARE OF PT ASSUMED. PT LYING IN MID BAKER'S POSITION VISITING WITH SPOUSE. IV TO RIGHT WRIST PATENT WITH D51/2 NS INFUSING AT 125 ML/HR. WILL MONITOR FOR NEEDS.
[2020-01-02 20:00] VITALS: BP 128/76
--- NOTE | 2020-01-02 21:32 | NUR ---
HS MEDICATIONS GIVEN.
--- NOTE | 2020-01-03 01:10 | NUR ---
GAVE MORPHINE 2 MG IVP PER REQUEST FOR ABDOMINAL PAIN, PER PRN ORDER.
--- NOTE | 2020-01-03 01:14 | NUR ---
RECEIVED ORDER TO RENEW MORPHINE 2 MG Q4HR PRN FOR ABDOMINAL PAIN.
[2020-01-03 07:03] LABS: BASOPHILS 0.2 % (0-2); EOSINOPHILS 3.9 % (0-7); HEMATOCRIT 38.1 % (36.0-48.0); HEMOGLOBIN 12.3 g/dL (12-16); IMMATURE GRANULOCYTES 0.2 % (0-5); LYMPHOCYTES 34.6 % (15-50); MCH 27.5 pg (26.0-34.0); MCHC 32.3 g/dL (31.0-37.0); MCV 85.2 fL (80.0-100.0); MEAN PLATELET VOLUME 9.9 fL (7.4-10.4); MONOCYTES 7.3 % (2-11); NEUTROPHILS 53.8 % (40-80); PLATELET COUNT 231 10x3/uL (130-400); RBC 4.47 10x6/uL (4.00-5.40); RDW 13.1 % (11.5-14.5); WBC 4.9 10x3/uL (4.8-10.8)
[2020-01-03 07:31] LABS: CALC OSMOLALITY 275 mosm/kg (275-300); CALCIUM 8.4 mg/dL (8.5-10.1); CARBON DIOXIDE 25.4 mmol/L (21.0-32.0); CHLORIDE - SERUM 107 mmol/L (98-107); CREATININE - SERUM 0.6 mg/dL (0.6-1.3); GLUCOSE 107 mg/dL (74-106); PHOSPHOROUS 3.5 mg/dL (2.5-4.9); POTASSIUM - SERUM 3.9 mmol/L (3.5-5.1); SODIUM 140 mmol/L (136-145); UREA NITROGEN 5 mg/dL (7-18); eGFR NON AFRICAN AMERICAN > 90 mL/min (90-120)
--- NOTE | 2020-01-03 08:52 | NUR ---
SHE IS ALERT, TALKING. NEED MORE STOOL FOR SPECIMEN. PAIN MED GIVEN. THE CALL LIGHT IS WITHIN REACH.
[2020-01-03 09:57] VITALS: BP 151/91
[2020-01-03 13:25] VITALS: BP 133/84
[2020-01-03 14:09] VITALS: BP 140/88
[2020-01-03 17:02] VITALS: BP 150/88
[2020-01-03 17:22] VITALS: BP 150/88
[2020-01-03 21:00] VITALS: BP 127/88
[2020-01-04 06:57] LABS: BASOPHILS 0.4 % (0-2); EOSINOPHILS 3.9 % (0-7); HEMOGLOBIN 12.4 g/dL (12-16); IMMATURE GRANULOCYTES 0.2 % (0-5); MCH 27.6 pg (26.0-34.0); MCHC 32.6 g/dL (31.0-37.0); MCV 84.6 fL (80.0-100.0); MEAN PLATELET VOLUME 9.5 fL (7.4-10.4); MONOCYTES 9.9 % (2-11); NEUTROPHILS 52.6 % (40-80); PLATELET COUNT 250 10x3/uL (130-400); RBC 4.49 10x6/uL (4.00-5.40); RDW 12.9 % (11.5-14.5); WBC 5.5 10x3/uL (4.8-10.8)
--- NOTE | 2020-01-04 07:00 | NUR ---
RECEIVED REPORT, ASSUMED CARE, BREATHING EVEN UNLABORED, PT UP IN CHAIR, DENIES NEEDS, BED LOWEST POSITION, CALL LIGHT IN REACH, IV TO RW PATENT D5 1/2 NS @100, NO S/S OF DISTRESS NOTED, WILL CONTINUE POC
[2020-01-04 07:17] LABS: CALC OSMOLALITY 269 mosm/kg (275-300); CALCIUM 8.8 mg/dL (8.5-10.1); CARBON DIOXIDE 24.2 mmol/L (21.0-32.0); CHLORIDE - SERUM 103 mmol/L (98-107); CREATININE - SERUM 0.7 mg/dL (0.6-1.3); GLUCOSE 103 mg/dL (74-106); MAGNESIUM - SERUM 1.9 mg/dL (1.8-2.4); POTASSIUM - SERUM 3.7 mmol/L (3.5-5.1); SODIUM 136 mmol/L (136-145); UREA NITROGEN 6 mg/dL (7-18); eGFR NON AFRICAN AMERICAN > 90 mL/min (90-120)
[2020-01-04 07:18] LABS: PHOSPHOROUS 4.6 mg/dL (2.5-4.9)
[2020-01-04 09:01] VITALS: BP 132/84
[2020-01-04 12:25] VITALS: BP 122/78
[2020-01-04 16:00] VITALS: BP 143/96
--- NOTE | 2020-01-04 19:00 | NUR ---
BEDSIDE REPORT RECEIVED AND CARE OF PT ASSUMED. PT SITTING UP IN BED WATCHING TV. IV TO RIGHT WRIST PATENT WITH D51/2 NS INFUSING AT 100 ML/HR. WILL MONITOR FOR NEEDS.
[2020-01-04 20:22] VITALS: BP 135/85
--- NOTE | 2020-01-04 20:25 | NUR ---
PT STARTED HAVING RASH AND ITCHING UP RIGHT ARM FEW MINUTES AFTER STARTING LEVOQUIN. TURNED OFF AND CALLED PRODUCTION CONTROL EXPERT. ORDER TO GIVE ATARAX PO Q6PRN FOR ITCHING. DISCONTINUED LEVOQUIN AND ADDED TO ALLERGY LIST.
--- NOTE | 2020-01-04 20:54 | NUR ---
HS MEDICATIONS GIVEN TO INCLUDE MORPHINE PER REQUEST. WILL MONITOR FOR EFFECTIVENESS.
[2020-01-05] VITALS: BP 128/78
[2020-01-05 04:00] VITALS: BP 131/74
[2020-01-05 06:24] LABS: BASOPHILS 0.1 % (0-2); EOSINOPHILS 3.9 % (0-7); HEMATOCRIT 40.6 % (36.0-48.0); HEMOGLOBIN 13.4 g/dL (12-16); IMMATURE GRANULOCYTES 0.3 % (0-5); LYMPHOCYTES 30.1 % (15-50); MCH 27.9 pg (26.0-34.0); MCV 84.4 fL (80.0-100.0); MEAN PLATELET VOLUME 9.7 fL (7.4-10.4); MONOCYTES 9.1 % (2-11); NEUTROPHILS 56.5 % (40-80); PLATELET COUNT 268 10x3/uL (130-400); RBC 4.81 10x6/uL (4.00-5.40); WBC 6.7 10x3/uL (4.8-10.8)
[2020-01-05 06:44] LABS: CALC OSMOLALITY 280 mosm/kg (275-300); CALCIUM 8.5 mg/dL (8.5-10.1); CARBON DIOXIDE 26.9 mmol/L (21.0-32.0); CHLORIDE - SERUM 103 mmol/L (98-107); CREATININE - SERUM 0.6 mg/dL (0.6-1.3); GLUCOSE 114 mg/dL (74-106); MAGNESIUM - SERUM 1.9 mg/dL (1.8-2.4); PHOSPHOROUS 4.3 mg/dL (2.5-4.9); POTASSIUM - SERUM 4.2 mmol/L (3.5-5.1); SODIUM 142 mmol/L (136-145); UREA NITROGEN 5 mg/dL (7-18); eGFR NON AFRICAN AMERICAN > 90 mL/min (90-120)
[2020-01-05 08:37] VITALS: BP 134/83
--- NOTE | 2020-01-05 09:19 | NUR ---
PT SITTING UP IN BED VISITING WITH SPOUSE. NO S/SX OF DISTRESS, IV IN LT WRIST. PATENT. CL IN REACH, BED IN LOWEST POSITION. CONTINUE WITH PLAN OF CARE
[2020-01-05 12:00] VITALS: BP 119/82
[2020-01-05] MEDS ORDERED: FEXOFENADINE HC60 MG PO (12:20)
[2020-01-05] MEDS ORDERED: ANUSOL-HC 2.5%30 GM RC (12:20)
[2020-01-05] MEDS ORDERED: FLORINEF 0.1 M0.1 MG PO (12:20)
[2020-01-05] MEDS ORDERED: FLAGYL500 MG PO (12:21)
--- NOTE | 2020-01-05 12:47 | NUR ---
LYING IN BED,WITHOUT NEEDS.
--- NOTE | 2020-01-05 14:35 | NUR ---
PT TO DC HOME, WENT OVER DC PAPERWORK AND APPOINTMENTS WITH PT AND SPOUSE. ALL QUESTIONS ANSWERED. IV IN RT WRIST DC WITH CATHETER INTACT. PT TAKEN DOWN VIA WC BY STACI
--- NOTE | 2020-01-06 13:36 | EC ---
PATIENT:HEBERT GUAMAN DATE OF SERVICE: 12/30/19 SEX: F MEDICAL RECORD: [id number] DATE OF : 61 LOCATION:D.MS [place] AGE OF PATIENT: 54 ADMISSION DATE: 12/30/19 REFERRING PHYSICIAN: INTERPRETING PHYSICIAN: EMILE RENNER MD ECHOCARDIOGRAM REPORT ECHO CHARGES 4 ECHO COMPLETE Date: 01/02/20 CLINICAL DIAGNOSIS: CP ECHOCARDIOGRAPHIC MEASUREMENTS (adult normal given) AC root (d.<3.7cm) 2.9 cm LV Septum d (<1.2 cm> 1.2 cm Valve Excursion 1.9 cm LV Septum (systole) 1.8 cm Left Atria (s.<4.0cm> 2.5 cm LVPW d(<1.2cm) 0.6 cm RV (d.<2.3cm) 1.9 cm LVPW (sytole) 1.1 cm LV diastole(<5.6CM) 4.3 cm MV E-F(>70mm/sec) cm LV systole 3.0 cm LVOT Diameter 1.9 cm MV exc.(>10mm) cm Est.ejection fraction (50-75%) % DOPPLER: LVIT cm/sec A 82 cm/sec E 94 cm/sec LA cm/sec RVSP 20.4 mmHg LVOT 136 cm/sec AOP1/2T m/s Asc. Ao 126 cm/sec RVOT 65 cm/sec RA cm/sec PA 62 cm/sec AV Gradient Peak 6.3 mmHg AV Mean 3.3 mmHg AV Area 2.9 cm MV Gradient Peak 3.8 mmHg MV Mean 2.4 mmHg MV Area cm COMMENTS: Logistics Team Leader: Franklyn FORBES Project Management Professional: 3 Dr. Priest TAPE# PACS Pericardial Effusion N DATE OF SERVICE: 01/05/2020 Adequate 2D, color flow imaging, spectral Doppler, and M-Mode. No LVH. LV internal dimension is normal. Wall motion is normal. EF is greater than or equal to 55%. Aortic valve is tricuspid. No evidence of stenosis by Doppler interrogation. Left atrium is normal at 3.5 cm. Mitral valve shows no prolapse. Trace MR. Right-sided chambers are grossly normal. Trace TR. TRANSINT:[id number] Voice Confirmation ID: [id number] DOCUMENT ID: [id number] ECHOCARDIOGRAM REPORT [id number] CLOSE,HEBERT RENNER,EMILE Thomson MD at 1336 CC: [id number] DICTATION DATE: 01/05/20943 CAN COVERER: 01/05/202031 DIS IN 01/05/20 [facility] [address] [place] [address]
--- NOTE | 2020-01-08 09:01 | MORECARE ---
CASE MANAGEMENT DISCHARGE SUMMARY PATIENT: HEBERT GUAMAN CHAKA UNIT: [id number] ADM DATE: 12/30/19 AGE: 54 : [birth year] SEX: F ROOM/BED: D.2222 AUTHOR: SANTHOSH STYLES PHYSICIAN: REFERRING PHYSICIAN: DULCE COBIAN MD DATE OF SERVICE: 01/08/20 Discharge Plan Patient Name: HEBERT GUAMAN Facility: [facility]:[place] : 1965 Planned Disposition: Home Anticipated Discharge Date: Discharge Date: 01/05/2020 Expected LOS: Initial Reviewer: [email or web address] Initial Review Date: 12/30/2019 Generated: 01/08/20 10:00 am Comments DCP- Discharge Planning Updated by [id number]: Ibis Freitas on 01/02/20 1:[address] Patient Name: HEBERT GUAMAN Admission Status: Elective Accout number: [id number] Admission Date: 12-30-2019 : 1965 Admission Diagnosis:INFECTIOUS GASTROENTERITIS AND COLITIS, UNSPECIFIED Attending: DULCE COBIAN Current LOS: 3 Anticipated DC Date: Planned Disposition: Home Primary Insurance: MEDICAID [place] Discharge Planning Comments: CM met with patient to complete initial dc planning assessment. CM educated patient on the CM role and verbal consent given by patient to complete assessment. Patient lives at home with family. Patient is independent. At discharge patient plans to return home and feels this is a safe discharge. CM discussed availability of home health, rehab services, and medical equipment. Patient will have family to transport home. Patient denied known discharge needs at this time. CM will continue to follow and will assist as needed. Boarder Machine: Ibis Freitas DCPIA - Discharge Planning Initial Assessment Updated by [id number]: Ibis Freitas on 01/02/20 2:50 pm * Is the patient Alert and Oriented? Yes * PCP [facility] * [facility]acy [facility] * Preadmission Environment Home with Family * ADLs Independent * Other Equipment NEBS * Community resources currently utilized None * Additional services required to return to the preadmission environment? No * Can the patient safely return to the preadmission environment? Yes * Has this patient been hospitalized within the prior 30 days at any hospital? No Last DP export: 01/02/20 2:01 p Patient Name: HEBERT GUAMAN Page [id number] at 0901 All edits/amendments must be made on the electronic document DICTATION DATE: 01/08/20900 ENTRY LEVEL MECHANICAL ENGINEER: SUAD 01/08/20900 RPT#: [id number] DC DATE:01/05/20 STATUS: DIS IN [facility] [address] [place] [address] END OF REPORT
[2020-01-09 19:08] LABS: OVA + PARASITE EXAM Final report (())
== END 2020-01-05 14:43 | disposition home or self-care (01) | DRG 392 ==
LOC: D.MS 16:52
PROVIDERS: Family Medicine; ADMIT Emergency Medicine; ATTEND Emergency Medicine
DX: A09 Infectious gastroenteritis and colitis, unspecified (principal); E87.6 Hypokalemia; E78.5 Hyperlipidemia, unspecified; I25.10 Atherosclerotic heart disease of native coronary artery without angina pectoris; Z95.0 Presence of cardiac pacemaker; K21.9 Gastro-esophageal reflux disease without esophagitis; M19.90 Unspecified osteoarthritis, unspecified site; F32.9 Major depressive disorder, single episode, unspecified; I10 Essential (primary) hypertension; R07.9 Chest pain, unspecified

== ENCOUNTER → 2020-01-29 10:19 | Outpatient (CLI) | payer MEDICAID ==
[2020-01-02 09:10] VITALS: BMI 21.9
[~2020-01-29 10:19] MED LIST changes: +ANUSOL-HC 2.5%30 GM RC; +AZELASTINE137 MCG/0. NASAL; +FEXOFENADINE HC60 MG PO; +FLAGYL500 MG PO; +HYDROCODON-ACE1 EA10 PO; +IPRAT-ALBUT 0.5-3 ML UPD
== END | disposition home or self-care (01) ==
LOC: D.RAD 10:19
PROVIDERS: ATTEND Emergency Medicine
DX: K59.09 Other constipation (principal)

== ENCOUNTER → 2020-08-09 14:04 | Outpatient (CLI) | payer MEDICAID ==
[2020-01-02 09:10] VITALS: BMI 21.9
== END | disposition home or self-care (01) ==
LOC: D.RAD 14:04
PROVIDERS: ATTEND Pain Medicine Interventional Pain Medicine
DX: G89.4 Chronic pain syndrome (principal); M25.511 Pain in right shoulder; M25.512 Pain in left shoulder

== ENCOUNTER → 2020-09-29 08:02 | Outpatient (CLI) | payer MEDICAID ==
[2020-01-02 09:10] VITALS: BMI 21.9
--- NOTE | ~2020-09-29 | EC ---
PATIENT:HEBERT GUAMAN DATE OF SERVICE: 09/29/20 SEX: F MEDICAL RECORD: [id number] DATE OF : [birth year] [facility] AGE OF PATIENT: 55 ADMISSION DATE: 09/29/20 REFERRING PHYSICIAN: INTERPRETING PHYSICIAN: EMILE RENNER MD ECHOCARDIOGRAM REPORT ECHO CHARGES 4 ECHO COMPLETE Date: 09/29/20 CLINICAL DIAGNOSIS: CAD/HEART MURMUR/MITRAL AND TRICUSPID REGURG HX OF PACEMAKER/CABG ECHOCARDIOGRAPHIC MEASUREMENTS (adult normal given) AC root (d.<3.7cm) 3.2 cm LV Septum d (<1.2 cm> 1.2 cm Valve Excursion 1.3 cm LV Septum (systole) 1.4 cm Left Atria (s.<4.0cm> 3.5 cm LVPW d(<1.2cm) 1.2 cm RV (d.<2.3cm) 3.7 cm LVPW (sytole) 1.4 cm LV diastole(<5.6CM) 4.4 cm MV E-F(>70mm/sec) cm LV systole 3.0 cm LVOT Diameter 1.9 cm MV exc.(>10mm) 1.7 cm Est.ejection fraction (50-75%) % DOPPLER: LVIT cm/sec A 66.0 cm/sec E 78.0 cm/sec LA cm/sec RVSP 31 mmHg LVOT 113 cm/sec AOP1/2T m/s Asc. Ao 116 cm/sec RVOT 66 cm/sec RA cm/sec PA 95 cm/sec AV Gradient Peak 5.41 mmHg AV Mean 2.93 mmHg AV Area 3.1 cm MV Gradient Peak 2.55 mmHg MV Mean 1.27 mmHg MV Area cm COMMENTS: Marketing Development Representative: 2 KEVYN LEE Race Board Attendant: 3 Dr. Priest TAPE# PACS Pericardial Effusion N DATE OF SERVICE: Adequate 2D, color-flow imaging, spectral Doppler, and M-Mode FINDINGS: Borderline LVH. LV internal dimensions are normal. Wall motion is normal. EF is greater than or equal to 55%. Aortic valve is tricuspid. No evidence of stenosis by Doppler interrogation. Left atrium is normal at 3.5 cm. Mitral valve shows no prolapse. Trace MR. Right-sided chambers are grossly normal. Mild TR. ECHOCARDIOGRAM REPORT [id number] HEBERT GUAMAN TRANSINT:[id number] Voice Confirmation ID: [id number] DOCUMENT ID: [id number] EMILE RENNER MD CC: [id number] DICTATION DATE: 09/30/20 0839 MILL HAND PLATE MILL: 09/30/20 1153 DEP CLI 09/29/20 [facility] [address] [id number]
== END | disposition home or self-care (01) ==
LOC: D.HCCECHO 08:02
PROVIDERS: ATTEND Internal Medicine Cardiovascular Disease
DX: I25.10 Atherosclerotic heart disease of native coronary artery without angina pectoris (principal)